=== PATIENT | female | born 1950 | race Caucasian/White ===

== ENCOUNTER 2017-09-15 18:37 | Inpatient (IN) | payer MEDICARE, OTHER ==
[~2017-09-15] VITALS: Ht 165.1 cm; Wt 58.1 kg
[2017-09-15] MEDS ORDERED: DIVA250T6 PO (19:03)
[2017-09-15] MEDS ORDERED: TEMA30CA5 PO (19:03)
[2017-09-15] MEDS ORDERED: RISP2TAB23 PO (19:03)
[2017-09-15 19:09] LABS: BASOPHILS # (AUTO) 0.1 /CMM (0.0-0.2); BASOPHILS % (AUTO) 0.7 % (0.0-2.0); EOSINOPHILS % (AUTO) 0.4 % (0.0-6.0); HEMATOCRIT 34 % (33-45); HEMOGLOBIN 11.6 g/dL (11.5-14.8); LYMPHOCYTES # (AUTO) 1.8 /CMM (0.8-4.8); LYMPHOCYTES % (AUTO) 24.6 % (20.0-44.0); MEAN CORPUSCULAR HEMOGLOBIN 32 PG (26.0-33.0); MEAN CORPUSCULAR HGB CONC 34 g/dl (31.0-36.0); MEAN CORPUSCULAR VOLUME 96 fL (82-100); MONOCYTES % (AUTO) 13.3 % (2.0-12.0); NEUTROPHILS # (AUTO) 4.3 /CMM (1.8-8.9); PLATELET COUNT (AUTO) 208 /CMM (150-450); RDW COEFFICIENT OF VARIATION 14.1 (11.5-15.0); RED BLOOD CELL COUNT(AUTO) 3.59 MIL/uL (4.0-5.2); WHITE BLOOD COUNT (AUTO) 7.2 K/uL (4.3-11.0)
[2017-09-15 19:19] LABS: CARBON DIOXIDE 24 mmol/L (21-32); CHLORIDE 104 mmol/L (98-107); CREATININE 0.8 mg/dL (0.6-1.3); GLUCOSE 112 mg/dL (74-106); POTASSIUM 3.6 mmol/L (3.5-5.1); SODIUM SERUM 137 mmol/L (136-145); UREA NITROGEN, BLOOD 4 mg/dL (7-18)
[2017-09-15 19:34] LABS: ACETAMINOPHEN < 2 ug/ml (10-30); ALANINE AMINOTRANSFERASE 23 U/L (12-78); ALBUMIN 3.6 g/dL (3.4-5.0); ALCOHOL, BLOOD < 3 mg/dL (0-0); ALKALINE PHOSPHATASE 81 U/L (46-116); ASPARTATE AMINOTRANSFERASE 27 U/L (15-37); BILIRUBIN,DIRECT 0.1 mg/dL (0.0-0.2); BILIRUBIN,TOTAL 0.3 mg/dL (0.2-1.0); SALICYLATE 3.8 mg/dL (2.8-20.0)
[2017-09-15 21:21] VITALS: BP 162/70
[2017-09-15] MEDS ORDERED: ACETAMINOPHEN 325 MG TABLET PO PRN (21:30)
[2017-09-15] MEDS ORDERED: MAG HYDROX/AL HYDROX/SIMETH 30 ML UDC PO PRN (21:30)
[2017-09-15] MEDS ORDERED: LORAZEPAM 0.5 MG TABLET PO PRN (21:30)
[2017-09-15] MEDS ORDERED: MAGNESIUM HYDROXIDE 30 ML UDC PO PRN (21:30)
[2017-09-16] MEDS ORDERED: LORAZEPAM 0.5 MG TABLET ONE (05:52)
[2017-09-16 09:57] LABS: APPEARANCE,URINE CLEAR (CLEAR); BILIRUBIN,URINE NEGATIVE (NEGATIVE); BLOOD, URINE NEGATIVE Ery/uL (NEGATIVE); COLOR,URINE YELLOW (YELLOW); KETONES,URINE TRACE (NEGATIVE); LEUKOCYTE ESTERASE ,URINE NEGATIVE (NEGATIVE); NITRITE, URINE NEGATIVE (NEGATIVE); PROTEIN,URINE NEGATIVE (NEGATIVE); UGLUCOSE NEGATIVE (NEGATIVE); UROBILINOGEN,URINE 0.2 EU/dL (0.2)
[2017-09-16 09:59] LABS: BACTERIA,URINE 1+ /HPF (None Seen); RBC,URINE 0-2 /HPF (0-2); WBC,URINE 0-2 /HPF (0-3)
[2017-09-16] MEDS: DIVALPROEX SODIUM 250 MG TABLET.DR PO SCH ×2 (13:30→21:00)
[2017-09-16 16:00] VITALS: BP 129/72
[2017-09-16 20:00] VITALS: BP 142/52
[2017-09-16] MEDS ORDERED: risperiDONE 1 MG TABLET PO SCH (20:00)
[2017-09-17 08:00] VITALS: BP 146/66
[2017-09-17] MEDS: DIVALPROEX SODIUM 250 MG TABLET.DR PO SCH ×2 (08:28→21:31)
[2017-09-17 15:57] VITALS: BP 121/60
[2017-09-17 20:00] VITALS: BP 104/68
[2017-09-17] MEDS: risperiDONE 1 MG TABLET PO SCH (21:31)
[2017-09-18 08:00] VITALS: BP 126/69
[2017-09-18] MEDS: DIVALPROEX SODIUM 250 MG TABLET.DR PO SCH ×2 (09:10→21:10)
[2017-09-18 16:00] VITALS: BP 117/57
[2017-09-18 20:00] VITALS: BP 105/76
[2017-09-18] MEDS: risperiDONE 1 MG TABLET PO SCH (21:10)
[2017-09-19 08:00] VITALS: BP 127/63
[2017-09-19] MEDS: DIVALPROEX SODIUM 250 MG TABLET.DR PO SCH ×2 (08:52→20:55)
[2017-09-19 16:11] VITALS: BP 123/50
[2017-09-19 20:00] VITALS: BP 133/48
[2017-09-19] MEDS: risperiDONE 1 MG TABLET PO SCH (20:54)
[2017-09-20 08:00] VITALS: BP 118/70
[2017-09-20] MEDS: DIVALPROEX SODIUM 250 MG TABLET.DR PO SCH ×2 (08:29→20:36)
[2017-09-20 15:22] VITALS: BP 134/55
[2017-09-20 20:12] VITALS: BP 137/61
[2017-09-20] MEDS: risperiDONE 1 MG TABLET PO SCH (20:36)
[2017-09-21 08:00] VITALS: BP 144/61
[2017-09-21] MEDS: DIVALPROEX SODIUM 250 MG TABLET.DR PO SCH ×2 (08:16→20:00)
[2017-09-21 16:42] VITALS: BP 128/56
[2017-09-21] MEDS: risperiDONE 1 MG TABLET PO SCH (20:00)
[2017-09-21 20:37] VITALS: BP 104/65
[2017-09-22 08:00] VITALS: BP 122/54
[2017-09-22] MEDS: DIVALPROEX SODIUM 250 MG TABLET.DR PO SCH ×2 (08:37→20:55)
[2017-09-22] MEDS: risperiDONE 1 MG TABLET PO SCH ×2 (13:00→20:56)
[2017-09-22 16:06] VITALS: BP 123/84
[2017-09-22 20:49] VITALS: BP 135/51
[2017-09-23 08:00] VITALS: BP 125/57
[2017-09-23] MEDS: risperiDONE 1 MG TABLET PO SCH ×3 (10:32→21:03)
[2017-09-23] MEDS: DIVALPROEX SODIUM 250 MG TABLET.DR PO SCH ×2 (10:32→21:03)
[2017-09-23 16:41] VITALS: BP 147/95
[2017-09-23 20:07] VITALS: BP 123/52
[2017-09-24 08:00] VITALS: BP 129/54
[2017-09-24] MEDS: risperiDONE 1 MG TABLET PO SCH ×3 (10:31→20:48)
[2017-09-24] MEDS: DIVALPROEX SODIUM 250 MG TABLET.DR PO SCH ×3 (10:31→17:00)
[2017-09-24 16:00] VITALS: BP 133/60
[2017-09-24 20:00] VITALS: BP 130/57
[2017-09-25] MEDS: TEMAZEPAM 7.5 MG CAPSULE PO PRN ×2 (01:36→21:25)
[2017-09-25 08:00] VITALS: BP 110/69
[2017-09-25] MEDS: risperiDONE 1 MG TABLET PO SCH ×3 (08:11→21:24)
[2017-09-25] MEDS: DIVALPROEX SODIUM 250 MG TABLET.DR PO SCH ×3 (08:11→16:15)
[2017-09-25 16:04] VITALS: BP_SYST 117; BP_SYST 124; BP_DIAS 50; BP_DIAS 69
[2017-09-25] MEDS ORDERED: DIVALPROEX SODIUM 250 MG TABLET.DR PO SCH (17:00)
[2017-09-25 20:00] VITALS: BP 122/51
[2017-09-26 08:00] VITALS: BP 131/53
[2017-09-26] MEDS: risperiDONE 1 MG TABLET PO SCH ×3 (08:33→20:31)
[2017-09-26] MEDS: DIVALPROEX SODIUM 250 MG TABLET.DR PO SCH ×2 (08:33→17:08)
[2017-09-26 16:00] VITALS: BP 128/58
[2017-09-26 20:00] VITALS: BP 122/51
[2017-09-27 08:30] VITALS: BP 126/73
[2017-09-27] MEDS: DIVALPROEX SODIUM 250 MG TABLET.DR PO SCH ×2 (08:41→16:32)
[2017-09-27] MEDS: risperiDONE 1 MG TABLET PO SCH ×3 (08:42→20:58)
[2017-09-27 15:37] VITALS: BP 114/77
[2017-09-27 20:50] VITALS: BP 146/52
[2017-09-28 08:00] VITALS: BP 115/76
[2017-09-28] MEDS: risperiDONE 1 MG TABLET PO SCH ×3 (08:26→20:55)
[2017-09-28] MEDS: DIVALPROEX SODIUM 250 MG TABLET.DR PO SCH ×2 (08:26→16:24)
[2017-09-28 16:30] VITALS: BP 100/63
[2017-09-28 20:22] VITALS: BP 142/54
[2017-09-29 08:00] VITALS: BP 123/64
[2017-09-29] MEDS: DIVALPROEX SODIUM 250 MG TABLET.DR PO SCH (08:29)
[2017-09-29] MEDS: risperiDONE 1 MG TABLET PO SCH (08:29)
== END 2017-09-29 13:25 | disposition home or self-care (01) | DRG 885 ==
LOC: ER 18:42 → GPS 20:08
PROVIDERS: ADMIT Psychiatry & Neurology Psychosomatic Medicine; ATTEND Nurse Practitioner Acute Care
DX: F25.0 Schizoaffective disorder, bipolar type (principal); E11.9 Type 2 diabetes mellitus without complications; F41.9 Anxiety disorder, unspecified; Z73.6 Limitation of activities due to disability; Z79.899 Other long term (current) drug therapy
CPT/HCPCS: 36415; 80048-TC; 80076-TC; 80164-TC; 81000-TC; 85025-TC; 87081-TC; G0480

== ENCOUNTER 2018-06-22 14:18 | Inpatient (IN) | payer MEDICARE, OTHER ==
[~2018-06-22] VITALS: Ht 157.5 cm; Wt 59.9 kg
--- NOTE | 2018-06-22 15:08 | NUR ---
BIB PRIVATE EM FROM HOME FOR MEDICAL CLEARANCE PRIOR TO ADMISSION TO [facility]. PT SEEN & EVAL'D BY DR. MORTENSEN. PT AAOX2, CALM & COOPERATIVE, NAD NOTED @ THIS TIME.
[2018-06-22] MEDS ORDERED: risperiDONE 0.25 MG TABLET PO ONE (17:00)
[2018-06-22] MEDS ORDERED: risperiDONE 1 MG TABLET ONE (17:08)
[2018-06-22 17:09] LABS: BASOPHILS % (AUTO) 0.4 % (0.0-2.0); EOSINOPHILS % (AUTO) 0.3 % (0.0-6.0); HEMATOCRIT 41 % (33-45); HEMOGLOBIN 13.6 g/dL (11.5-14.8); LYMPHOCYTES # (AUTO) 2.2 /CMM (0.8-4.8); LYMPHOCYTES % (AUTO) 27.8 % (20.0-44.0); MEAN CORPUSCULAR HEMOGLOBIN 33 PG (26.0-33.0); MEAN CORPUSCULAR HGB CONC 33 g/dl (31.0-36.0); MEAN CORPUSCULAR VOLUME 99 fL (82-100); MONOCYTES # (AUTO) 0.8 /CMM (0.1-1.30); MONOCYTES % (AUTO) 9.6 % (2.0-12.0); NEUTROPHILS # (AUTO) 4.9 /CMM (1.8-8.9); NEUTROPHILS % (AUTO) 61.9 % (43.0-81.0); PLATELET COUNT (AUTO) 199 /CMM (150-450); RDW COEFFICIENT OF VARIATION 13.8 (11.5-15.0); RED BLOOD CELL COUNT(AUTO) 4.19 MIL/uL (4.0-5.2); WHITE BLOOD COUNT (AUTO) 7.9 K/uL (4.3-11.0)
[2018-06-22 17:22] LABS: CALCIUM, SERUM 9.5 mg/dL (8.5-10.1); CARBON DIOXIDE 23 mmol/L (21-32); CHLORIDE 108 mmol/L (98-107); GLUCOSE 86 mg/dL (74-106); POTASSIUM 4.8 mmol/L (3.5-5.1); SODIUM SERUM 143 mmol/L (136-145); UREA NITROGEN, BLOOD 8 mg/dL (7-18)
[2018-06-22 17:29] LABS: ALANINE AMINOTRANSFERASE 31 U/L (12-78); ALBUMIN 3.9 g/dL (3.4-5.0); ALCOHOL, BLOOD < 3 mg/dL (0-0); ALKALINE PHOSPHATASE 96 U/L (46-116); ASPARTATE AMINOTRANSFERASE 30 U/L (15-37); BILIRUBIN,DIRECT 0.1 mg/dL (0.0-0.2); BILIRUBIN,TOTAL 0.6 mg/dL (0.2-1.0); TOTAL PROTEIN, SERUM 7.6 g/dL (6.4-8.2)
[2018-06-22] MEDS ORDERED: RISP0.5T20 PO (17:29)
[2018-06-22] MEDS ORDERED: OLAN5TAB3 PO (17:29)
[2018-06-22] MEDS ORDERED: CALC-261 PO (17:29)
[2018-06-22] MEDS ORDERED: TEMA15CA PO (17:29)
[2018-06-22] MEDS ORDERED: MAGN200T5 PO (17:29)
[2018-06-22] MEDS ORDERED: HYDR12.55 PO (17:30)
[2018-06-22] MEDS ORDERED: FERR325T23 PO (17:30)
[2018-06-22 17:32] LABS: APPEARANCE,URINE Clear (CLEAR); BILIRUBIN,URINE Negative (NEGATIVE); BLOOD, URINE Negative Ery/uL (NEGATIVE); COLOR,URINE Yellow (YELLOW); KETONES,URINE 15 (NEGATIVE); LEUKOCYTE ESTERASE ,URINE Negative (NEGATIVE); NITRITE, URINE Negative (NEGATIVE); PH,URINE 6.5 (5.0-8.0); PROTEIN,URINE Negative (NEGATIVE); UGLUCOSE Negative (NEGATIVE); UROBILINOGEN,URINE 0.2 EU/dL (0.2)
[2018-06-22 17:35] LABS: THYROID STIMULATING HORMONE 1.354 uIU/mL (0.358-3.74)
[2018-06-22 17:42] LABS: ACETAMINOPHEN 0 ug/ml (10-30); SALICYLATE 2.3 mg/dL (2.8-20.0)
[2018-06-22 17:46] LABS: BACTERIA,URINE Rare /HPF (None Seen); RBC,URINE NONE SEEN /HPF (0-2); SQUAMOUS EPITHELIAL CELL,UR Few /HPF (None Seen); WBC,URINE NONE SEEN /HPF (0-3)
[2018-06-22 17:56] LABS: VALPROIC ACID < 3 ug/mL (50-100)
[2018-06-22] MEDS ORDERED: OLANZAPINE 5 MG TABLET PO SCH (18:30)
--- NOTE | 2018-06-22 19:15 | NUR ---
ADMITTED 68 Y/O FEMALE FROM HOME AND EVALUATED AT [facility] ER. ON 5150 HOLD, BASED ON HOLD, PATIENT REFUSED TO SPEAK, WAS USING SIGN LANGUAGE AND NON VERBAL BEHAVIORS THAT WERE UNINTERPRETABLE. PATIENT REFUSED TO DISCLOSE WHETHER SHE WAS EATING AND STATED THAT SHE WAS NOT TAKEN HER MEDICATION. UNABLE TO FORMULATE A PLAN FOR SELF CARE AND WERE WRITING CHECKS TO GIVE AWAY MONEY TO HER NEIGHBORS. PATIENT ADMITTING DX. PSYCHOSIS AND MEDICAL DX. OF HYPERTENSION. UPON FACE TO FACE EVALUATION, PATIENT APPEARED ALERT, ORIENTED X 1-2, CONFUSED, DISORGANIZED, LOUD, TALKING TO SELF, MUMBLING, TALKING NON SENSIBLE WORDS, REDIRECTIBLE, NO SOB, NO ACUTE DISTRESS, BREATHING EVEN AND UNLABORED, DENIES PAIN AND DISCOMFORT. HEAD TO TOE ASSESSMENT DONE, SKIN INTACT, PICTURES TAKEN, PATIENT UNABLE TO SIGN PAPER WORKS. ALL CONTRABANDS AND BELONGINGS INSPECTED BY THE PREVIOUS SHIFT. NOTIFIED DR. SAWANT OF THE ADMISSION. KEPT CLEAN, DRY AND COMFORTABLE, WILL CONTINUE TO MONITOR [id number] FOR SAFETY.
[2018-06-22 20:21] VITALS: BP 129/53
[2018-06-22] MEDS ORDERED: MAG HYDROX/AL HYDROX/SIMETH 30 ML UDC PO PRN (20:30)
[2018-06-22] MEDS ORDERED: MAGNESIUM HYDROXIDE 30 ML UDC PO PRN (20:30)
[2018-06-22] MEDS: FERROUS SULFATE (325 MG) 325 MG/TAB TABLET PO SCH (20:47)
[2018-06-22 23:15] VITALS: BP 129/53
[2018-06-22] MEDS: TEMAZEPAM 7.5 MG CAPSULE PO PRN (23:36)
[2018-06-23 08:00] VITALS: BP 123/68
--- NOTE | 2018-06-23 09:00 | NUR ---
OUT AT DESK ,TALKING INCESSANTLY,ALL DAY LONG.
[2018-06-23] MEDS: CALCIUM CARB 600MG /VIT D 1 EACH TABLET PO SCH (09:27)
[2018-06-23] MEDS: MAGNESIUM OXIDE 400 MG TABLET PO SCH (09:27)
[2018-06-23] MEDS: FERROUS SULFATE (325 MG) 325 MG/TAB TABLET PO SCH ×2 (09:27→17:12)
[2018-06-23] MEDS: HYDROCHLOROTHIAZIDE 25 MG TABLET PO SCH (09:28)
--- NOTE | 2018-06-23 11:12 | NUR ---
TIM attempted to contact pts son Zonia [phone] for collateral information and to discuss discharge plan but was unable to leave voicemail due to his mailbox being full. TIM will attempt to callback at a later time.
--- NOTE | 2018-06-23 11:13 | NUR ---
SW attempted to contact next of kin on face sheet pts relative Laura [phone], however phone number was no longer in service.
[2018-06-23] MEDS: LORAZEPAM 0.5 MG TABLET PO PRN ×2 (11:33→17:12)
--- NOTE | 2018-06-23 11:42 | NUR ---
MEDICATED FOR ANXIETY WITH ATIVAN PO.
--- NOTE | 2018-06-23 12:27 | NUR ---
SW contacted pts son Zonia [phone] for collateral information and to discuss discharge plan. Pts son stated pt could return home when she is stable and mentioned pt has two caregivers Laura [phone] and Yamilka [phone] who help care for her and could help answer any additional questions SW had and receive collateral information from.
--- NOTE | 2018-06-23 15:49 | NUR ---
INITIAL DISCHARGE PLAN: Patient wishes to return home and SW confirmed with patients son Zonia [phone] who stated pt is able to return home to [address] [place] [address] [address] [place] [id number]. SW will help form a safe and proper discharge plan in collaboration with MD and pts son.
[2018-06-23 16:00] VITALS: BP 144/59
--- NOTE | 2018-06-23 17:17 | NUR ---
GIVEN ATIVAN 0.5 MG PO X2.
[2018-06-23] MEDS ORDERED: Medication Not On Formulary EA (Risperidone 0.5 MG) PO SCH (18:00)
--- NOTE | 2018-06-23 19:30 | NUR ---
GPS RN NOTE, RECEIVED PATIENT AWAKE AND IN BED, NO S/S OR COMPLAINTS OF PAIN AT THIS TIME. PATIENT IS DISPLAYING NO S/S OF APPARENT DISTRESS AT THIS TIME. PATIENT BREATHING IS UNLABORED WITH EQUAL RISE AND FALL CHEST. PATIENT IS ALERT AND ORIENTED X 1 ON ROOM AIR WITH A SPO2 95% . PATIENT IS CONFUSED, INTRUSIVE, DISORGANIZED, COOPERATIVE, ANXIOUS AT TIMES, AND NEEDS REDIRECTION. PATIENT DENIES SUICIDE IDEATIONS AND HOMICIDAL IDEATIONS AT THIS TIME. PATIENT EDUCATED ON THE USE OF THE CALL GORDON. PATIENT BED SIDE RAILS UP X 2 FOR SAFETY, BED IS LOCKED, LOW, AND I WILL CONTINUE TO MONITOR AND MAINTAIN SAFETY WITH THE HELP OF STAFF.
[2018-06-23] MEDS: OLANZAPINE 5 MG TABLET PO SCH (21:45)
[2018-06-23] MEDS: DIVALPROEX SODIUM 500 MG TABLET.DR PO SCH (21:45)
[2018-06-24 08:00] VITALS: BP 138/90
[2018-06-24] MEDS: CALCIUM CARB 600MG /VIT D 1 EACH TABLET PO SCH (08:41)
[2018-06-24] MEDS: OLANZAPINE 5 MG TABLET PO SCH ×2 (08:41→20:27)
[2018-06-24] MEDS: DIVALPROEX SODIUM 500 MG TABLET.DR PO SCH ×2 (08:41→20:28)
[2018-06-24] MEDS: MAGNESIUM OXIDE 400 MG TABLET PO SCH (08:41)
[2018-06-24] MEDS: FERROUS SULFATE (325 MG) 325 MG/TAB TABLET PO SCH ×2 (08:41→17:00)
[2018-06-24] MEDS: HYDROCHLOROTHIAZIDE 25 MG TABLET PO SCH (08:41)
[2018-06-24] MEDS: LORAZEPAM 0.5 MG TABLET PO PRN (09:11)
--- NOTE | 2018-06-24 09:18 | NUR ---
GPS/RN-NOTES PATIENT IN THE DAY ROOM NOTED WITH HYPERVERBAL INTRUSIVE EASILY ANGRY BEHAVIOR. REDIRECTED AND OFFERED ATIVAN . ATIVAN 0.5MG P.O GIVEN PRN ORDER. WILL CONT. MONITORINGQ 15 MINS. FOR SAFETY AND BEHAVIOR.
--- NOTE | 2018-06-24 10:20 | NUR ---
GPS/RN-NOTES PATIENT IN THE DAY ROOM SITTING IN THE CHAIR ,CALM NO ACUTE DISTRESS NOTED.
--- NOTE | 2018-06-24 15:37 | NUR ---
TIM received a phone call from Alejandrina Hughes pts therapist from [facility] with [facility] [phone] stating pt has been receiving mental health services since 2014 and meets with pt weekly every at 1:00pm. Alejandrina requested that she be contacted by TIM when pt discharges from hospital to continue providing pt with services.
[2018-06-24 16:00] VITALS: BP 139/65
--- NOTE | 2018-06-24 17:15 | NUR ---
GPS/RN-NOTES PATIENT REFUSE FERROUS SULFATE STATED" I DON'T WANT TO TAKE THAT BLACK PILL AGAIN".EXPLAINED RISK AND BENEFITS BUT PATIENT STILL REFUSED.OFFERED X3.
[2018-06-24 20:00] VITALS: BP 106/51
[2018-06-25 08:00] VITALS: BP 124/69
[2018-06-25] MEDS: CALCIUM CARB 600MG /VIT D 1 EACH TABLET PO SCH (09:00)
[2018-06-25] MEDS: FERROUS SULFATE (325 MG) 325 MG/TAB TABLET PO SCH ×2 (09:00→16:23)
[2018-06-25] MEDS: DIVALPROEX SODIUM 500 MG TABLET.DR PO SCH ×2 (09:06→21:06)
[2018-06-25] MEDS: MAGNESIUM OXIDE 400 MG TABLET PO SCH (09:06)
[2018-06-25] MEDS: OLANZAPINE 5 MG TABLET PO SCH ×2 (09:07→21:06)
[2018-06-25] MEDS: HYDROCHLOROTHIAZIDE 25 MG TABLET PO SCH (09:07)
--- NOTE | 2018-06-25 14:30 | NUR ---
GPS/RN-NOTES DR. SAWANT MADE AWARE OF PATIENT BEING SELECTIVE WITH MEDICATIONS TODAY.
[2018-06-25 16:11] VITALS: BP 139/79
[2018-06-25] MEDS: LORAZEPAM 0.5 MG TABLET PO PRN (16:23)
--- NOTE | 2018-06-25 16:25 | NUR ---
GPS/RN-NOTES PATIENT NOTED PATIENT WITH HYPERVERBAL INTRUSIVE TALKING VERY LOUD IN THE DAY ROOM. REDIRECTED AND OFFERED ATIVAN . ATIVAN 0.5MG P.O GIVEN PRN ORDER. WILL CONT. MONITORING FOR SAFETY AND BEHAVIOR.
[2018-06-25] MEDS: TEMAZEPAM 7.5 MG CAPSULE PO PRN (21:06)
--- NOTE | 2018-06-25 21:06 | NUR ---
GPS RN NOTES. PT. COMPLAINING OF BEING UNABLE TO FALL ASLEEP. RESTORIL GIVEN ORDERED WILL CONTINUE TO MONITOR FOR SAFETY.
[2018-06-26 08:16] VITALS: BP 111/75
[2018-06-26] MEDS: DIVALPROEX SODIUM 500 MG TABLET.DR PO SCH ×2 (08:59→20:37)
[2018-06-26] MEDS: MAGNESIUM OXIDE 400 MG TABLET PO SCH (08:59)
[2018-06-26] MEDS: OLANZAPINE 5 MG TABLET PO SCH ×2 (08:59→21:02)
[2018-06-26] MEDS: HYDROCHLOROTHIAZIDE 25 MG TABLET PO SCH (09:00)
[2018-06-26] MEDS: FERROUS SULFATE (325 MG) 325 MG/TAB TABLET PO SCH ×2 (09:08→17:00)
[2018-06-26] MEDS: CALCIUM CARB 600MG /VIT D 1 EACH TABLET PO SCH (09:08)
[2018-06-26] MEDS: LORAZEPAM 0.5 MG TABLET PO PRN ×2 (10:16→19:58)
--- NOTE | 2018-06-26 10:24 | NUR ---
GPS/RN-NOTES PATIENT IN THE NURSE STATION NOTED WITH HYPERVERBAL INTRUSIVE EASILY ANGRY BEHAVIOR. REDIRECTED AND OFFERED ATIVAN . ATIVAN 0.5MG P.O GIVEN PRN ORDER. WILL CONT. MONITORING FOR SAFETY AND BEHAVIOR.
--- NOTE | 2018-06-26 11:30 | NUR ---
GPS/RN-NOTES PATIENT IN THE DAY ROOM INTERACTING WITH STAFF CALM AT THIS TIME.NO ACUTE DISTRESS NOTED.
[2018-06-26 16:00] VITALS: BP 118/65
[2018-06-26 20:00] VITALS: BP 144/81
--- NOTE | 2018-06-26 20:00 | NUR ---
PATIENT BEHAVIOR ANXIOUS, C/O ANXIETY AND GIVEN ATIVAN PRN.
[2018-06-26] MEDS: OLANZAPINE 2.5 MG TABLET PO SCH (20:37)
--- NOTE | 2018-06-27 07:07 | NUR ---
REFUSED AM LABS. LAB MADE TWO ATTEMPTS.
[2018-06-27] MEDS: DIVALPROEX SODIUM 500 MG TABLET.DR PO SCH (09:11)
[2018-06-27] MEDS: CALCIUM CARB 600MG /VIT D 1 EACH TABLET PO SCH (09:11)
[2018-06-27] MEDS: MAGNESIUM OXIDE 400 MG TABLET PO SCH (09:11)
[2018-06-27] MEDS: FERROUS SULFATE (325 MG) 325 MG/TAB TABLET PO SCH ×2 (09:11→17:57)
[2018-06-27] MEDS: LORAZEPAM 0.5 MG TABLET PO PRN (09:12)
[2018-06-27] MEDS: HYDROCHLOROTHIAZIDE 25 MG TABLET PO SCH (09:12)
--- NOTE | 2018-06-27 09:12 | NUR ---
RN NOTES ADMINISTERED ATIVAN 0.5 MG PO PRN FOR ANXIETY, PARANOIA, YELLING. V/S TAKEN BP -117/75, P-97, CONTINUED MONITORING.
[2018-06-27 09:17] VITALS: BP 117/75
[2018-06-27] MEDS: OLANZAPINE 5 MG TABLET PO SCH ×2 (09:35→21:00)
[2018-06-27 16:00] VITALS: BP 123/61
--- NOTE | 2018-06-27 20:15 | NUR ---
GPS RN NOTE: RECEIVED PATIENT IN HALLWAY AT NURSE STATION DISORGANIZED ORIENTED X 1, PT IS INTRUSIVE BUT REDIRECTABLE WITH FREQUENT ENCOURAGEMENT. DENIES SI, HI. NO C/O PAIN OR DISCOMFORT AT THIS TIME. WILL CONTINUE TO MONITOR Q15MIN ROUNDS FOR SAFETY AND BEHAVIOR.
[2018-06-27] MEDS: OLANZAPINE 2.5 MG TABLET PO SCH (21:00)
[2018-06-27] MEDS: DIVALPROEX SODIUM 125 MG CAP.SPRINK PO SCH (21:00)
[2018-06-27 21:15] VITALS: BP 112/56
--- NOTE | 2018-06-27 21:15 | NUR ---
REFUSED ALL MEDICATIONS AT BEDTIME DESPITE EDUCATION ABOUT RISKS AND BENEFITS, ENCOURAGEMENT, REALITY ORIENTATION.
[2018-06-28 07:06] LABS: BASOPHILS % (AUTO) 0.3 % (0.0-2.0); EOSINOPHILS % (AUTO) 3.3 % (0.0-6.0); HEMATOCRIT 38 % (33-45); HEMOGLOBIN 12.9 g/dL (11.5-14.8); LYMPHOCYTES % (AUTO) 55.4 % (20.0-44.0); MEAN CORPUSCULAR HEMOGLOBIN 33 PG (26.0-33.0); MEAN CORPUSCULAR HGB CONC 34 g/dl (31.0-36.0); MEAN CORPUSCULAR VOLUME 98 fL (82-100); MONOCYTES % (AUTO) 11.4 % (2.0-12.0); NEUTROPHILS % (AUTO) 29.6 % (43.0-81.0); PLATELET COUNT (AUTO) 171 /CMM (150-450); RDW COEFFICIENT OF VARIATION 13.3 (11.5-15.0); WHITE BLOOD COUNT (AUTO) 5.2 K/uL (4.3-11.0)
[2018-06-28 07:07] LABS: LYMPHOCYTES # (AUTO) 2.9 /CMM (0.8-4.8); MONOCYTES # (AUTO) 0.6 /CMM (0.1-1.30); NEUTROPHILS # (AUTO) 1.5 /CMM (1.8-8.9)
[2018-06-28 07:24] LABS: ALBUMIN 3.2 g/dL (3.4-5.0); BILIRUBIN,TOTAL 0.3 mg/dL (0.2-1.0); CALCIUM, SERUM 8.7 mg/dL (8.5-10.1); CREATININE 0.7 mg/dL (0.6-1.3); POTASSIUM 3.1 mmol/L (3.5-5.1); TOTAL PROTEIN, SERUM 6.5 g/dL (6.4-8.2)
--- NOTE | 2018-06-28 07:25 | NUR ---
gps rn initial notes Received patient in the [address] walking fine, on room air and tolerated well. No facial grimace noted. Will continue to monitor.
[2018-06-28] MEDS: CALCIUM CARB 600MG /VIT D 1 EACH TABLET PO SCH ×2 (08:27→09:00)
[2018-06-28] MEDS: MAGNESIUM OXIDE 400 MG TABLET PO SCH ×2 (08:27→09:00)
[2018-06-28] MEDS: FERROUS SULFATE (325 MG) 325 MG/TAB TABLET PO SCH ×3 (08:27→16:37)
[2018-06-28] MEDS: OLANZAPINE 5 MG TABLET PO SCH ×3 (08:28→21:10)
[2018-06-28] MEDS: HYDROCHLOROTHIAZIDE 25 MG TABLET PO SCH ×2 (08:28→09:00)
[2018-06-28] MEDS: DIVALPROEX SODIUM 125 MG CAP.SPRINK PO SCH ×3 (08:28→21:10)
[2018-06-28 09:00] VITALS: BP 110/72
--- NOTE | 2018-06-28 09:00 | NUR ---
GPS NOTES Patient refused all her morning medications, encouraged to take her meds but still refused. Will inform MD. Will continue to monitor.
[2018-06-28] MEDS ORDERED: POTASSIUM CHLORIDE 20 MEQ TAB.PRT.SR PO ONE ×2 (10:00→11:00)
[2018-06-28 16:00] VITALS: BP 111/41
--- NOTE | 2018-06-28 19:22 | NUR ---
RN Notes Patient in the activity room, watching TV, interacting with other patient, talking in farsi continously. No signs and symptoms of distress and discomfort. Alert and oriented x1, confused and disoriented, reorientation given. Will continue to monitor and maintaihn safety.
[2018-06-28 19:57] VITALS: BP 136/55
[2018-06-28] MEDS: OLANZAPINE 2.5 MG TABLET PO SCH (21:10)
[2018-06-28] MEDS: TEMAZEPAM 7.5 MG CAPSULE PO PRN (22:58)
[2018-06-29] MEDS: LORAZEPAM 0.5 MG TABLET PO PRN ×3 (05:13→21:57)
--- NOTE | 2018-06-29 05:13 | NUR ---
RN Notes Pt is restless and agitated, ativan o.5 mg tab given po and tolerated well. Will continue to monitor pt.
[2018-06-29 08:00] VITALS: BP 144/54
[2018-06-29] MEDS: CALCIUM CARB 600MG /VIT D 1 EACH TABLET PO SCH (08:32)
[2018-06-29] MEDS: FERROUS SULFATE (325 MG) 325 MG/TAB TABLET PO SCH ×2 (08:32→16:43)
[2018-06-29] MEDS: DIVALPROEX SODIUM 125 MG CAP.SPRINK PO SCH ×2 (08:32→21:57)
[2018-06-29] MEDS: OLANZAPINE 5 MG TABLET PO SCH ×2 (08:32→21:57)
[2018-06-29] MEDS: HYDROCHLOROTHIAZIDE 25 MG TABLET PO SCH (08:32)
[2018-06-29] MEDS: MAGNESIUM OXIDE 400 MG TABLET PO SCH (08:33)
[2018-06-29 16:49] VITALS: BP 123/58
--- NOTE | 2018-06-29 19:15 | NUR ---
RN NOTES RECEIVED PT WALKING AROUND UNIT. NO APPARENT S/S OF DISTRESS AT THIS TIME. WILL CONTINUE TO MONITOR FOR PATIENT SAFETY.
[2018-06-29 20:22] VITALS: BP 128/55
[2018-06-29] MEDS: TEMAZEPAM 7.5 MG CAPSULE PO PRN (21:57)
[2018-06-29] MEDS: OLANZAPINE 2.5 MG TABLET PO SCH (21:57)
[2018-06-29 22:44] LABS: CALCIUM, SERUM 9.7 mg/dL (8.5-10.1); CREATININE 0.7 mg/dL (0.6-1.3); POTASSIUM 3.6 mmol/L (3.5-5.1)
[2018-06-30 08:00] VITALS: BP 118/58
[2018-06-30] MEDS: DIVALPROEX SODIUM 125 MG CAP.SPRINK PO SCH ×3 (08:55→21:19)
[2018-06-30] MEDS: OLANZAPINE 5 MG TABLET PO SCH (08:55)
[2018-06-30] MEDS: CALCIUM CARB 600MG /VIT D 1 EACH TABLET PO SCH (09:00)
[2018-06-30] MEDS: MAGNESIUM OXIDE 400 MG TABLET PO SCH (09:00)
[2018-06-30] MEDS: FERROUS SULFATE (325 MG) 325 MG/TAB TABLET PO SCH ×2 (09:00→17:22)
[2018-06-30] MEDS: HYDROCHLOROTHIAZIDE 25 MG TABLET PO SCH (09:00)
[2018-06-30] MEDS ORDERED: HALOPERIDOL LACTATE INJ 5 MG/ML VIAL IM PRN (15:30)
[2018-06-30 16:00] VITALS: BP 112/54
--- NOTE | 2018-06-30 19:05 | NUR ---
GPS RN OPENING NOTE: RECEIVED PT ON ROOM AIR AND IS TOLERATING WELL. 2 FAMILY MEMBERS AT BEDSIDE. PT IS A/OX1, CONFUSED AND DISORGANIZED. NO S/S OF DISTRESS NOTED. NO SOB NOTED. PT DENIES SUICIDE IDEATIONS OR HOMICIDAL IDEATIONS AT THIS TIME. PT HAS NO NEEDS AT THIS TIME. PT EDUCATED ON USE OF CALL BED. BED KEPT IN LOW, LOCKED POSITION, AND SIDE RAILS X 2UP. WILL CONTINUE TO MONITOR PT.
[2018-06-30 20:00] VITALS: BP 104/49
[2018-06-30 20:09] VITALS: BP 128/55
[2018-06-30] MEDS: BENZTROPINE MESYLATE (1 MG) 1 MG TABLET PO SCH (21:18)
--- NOTE | 2018-06-30 21:19 | NUR ---
GPS RN NOTE: PT GIVEN CONGENTIN AND DEPAKOTE. PT ONLY TOOK PARTIAL OF THE MEDICATIONS AND DID NOT WANT THE REST. WILL ATTEMPT TO GIVE REST LATER.
[2018-06-30] MEDS: TEMAZEPAM 7.5 MG CAPSULE PO PRN (22:24)
--- NOTE | 2018-07-01 06:31 | NUR ---
GPS RN CLOSING NOTE: ALL NEEDS WERE ATTENDED AND ANTICIPATED FOR. PT REORIENTED NEEDED. PT RESTING IN BED COMFORTABLY. NO S/S OF DISTRESS. NO SOB NOTED. WILL ENDORSE TO AM NURSE FOR KIMBER.
--- NOTE | 2018-07-01 08:00 | NUR ---
GPS RN AM NOTE: RECEIVED PT ON ROOM AIR AND IS TOLERATING WELL. 2 FAMILY MEMBERS AT BEDSIDE. PT IS A/OX1, CONFUSED AND DISORGANIZED. NO S/S OF DISTRESS NOTED. NO SOB NOTED. PT DENIES SUICIDE IDEATIONS OR HOMICIDAL IDEATIONS AT THIS TIME. PT HAS NO NEEDS AT THIS TIME. PT EDUCATED ON USE OF CALL BED. BED KEPT IN LOW, LOCKED POSITION, AND SIDE RAILS X 2UP. WILL CONTINUE TO MONITOR PT.
[2018-07-01 08:24] VITALS: BP 119/58
[2018-07-01] MEDS: HALOPERIDOL 5 MG TABLET PO SCH ×2 (08:50→21:00)
[2018-07-01] MEDS: DIVALPROEX SODIUM 125 MG CAP.SPRINK PO SCH ×2 (08:51→21:49)
[2018-07-01] MEDS: FERROUS SULFATE (325 MG) 325 MG/TAB TABLET PO SCH ×2 (08:51→16:58)
[2018-07-01] MEDS: MAGNESIUM OXIDE 400 MG TABLET PO SCH (08:51)
[2018-07-01] MEDS: HYDROCHLOROTHIAZIDE 25 MG TABLET PO SCH (08:51)
[2018-07-01] MEDS: BENZTROPINE MESYLATE (1 MG) 1 MG TABLET PO SCH ×2 (08:51→21:49)
[2018-07-01] MEDS: CALCIUM CARB 600MG /VIT D 1 EACH TABLET PO SCH (08:51)
[2018-07-01 16:28] VITALS: BP 140/51
[2018-07-01 20:00] VITALS: BP 103/51
[2018-07-01] MEDS: TEMAZEPAM 7.5 MG CAPSULE PO PRN (21:49)
[2018-07-01] MEDS: ACETAMINOPHEN 325 MG TABLET PO PRN (23:25)
[2018-07-02 08:00] VITALS: BP 114/79
[2018-07-02] MEDS: HALOPERIDOL 5 MG TABLET PO SCH ×2 (10:18→21:23)
[2018-07-02] MEDS: MAGNESIUM OXIDE 400 MG TABLET PO SCH (10:19)
[2018-07-02] MEDS: CALCIUM CARB 600MG /VIT D 1 EACH TABLET PO SCH (10:19)
[2018-07-02] MEDS: DIVALPROEX SODIUM 125 MG CAP.SPRINK PO SCH ×2 (10:19→21:23)
[2018-07-02] MEDS: BENZTROPINE MESYLATE (1 MG) 1 MG TABLET PO SCH ×2 (10:19→21:23)
[2018-07-02] MEDS: FERROUS SULFATE (325 MG) 325 MG/TAB TABLET PO SCH ×2 (10:20→17:36)
[2018-07-02] MEDS: HYDROCHLOROTHIAZIDE 25 MG TABLET PO SCH (10:22)
[2018-07-02 16:15] VITALS: BP 120/59
[2018-07-02 20:00] VITALS: BP 122/54
[2018-07-03 08:00] VITALS: BP 114/54
[2018-07-03] MEDS: FERROUS SULFATE (325 MG) 325 MG/TAB TABLET PO SCH ×2 (10:40→17:46)
[2018-07-03] MEDS: BENZTROPINE MESYLATE (1 MG) 1 MG TABLET PO SCH ×2 (10:40→20:26)
[2018-07-03] MEDS: MAGNESIUM OXIDE 400 MG TABLET PO SCH (10:40)
[2018-07-03] MEDS: HYDROCHLOROTHIAZIDE 25 MG TABLET PO SCH (10:40)
[2018-07-03] MEDS: DIVALPROEX SODIUM 125 MG CAP.SPRINK PO SCH ×2 (10:40→20:26)
[2018-07-03] MEDS: CALCIUM CARB 600MG /VIT D 1 EACH TABLET PO SCH (10:40)
[2018-07-03] MEDS: HALOPERIDOL 5 MG TABLET PO SCH ×2 (10:40→20:26)
[2018-07-03 16:00] VITALS: BP 150/70
--- NOTE | 2018-07-03 19:50 | NUR ---
GPS/RN OPENING NOTES PATIENT IN BED. AWAKE, ALERT, AMBULATES WITH SUPERVISION, VERBALIZED NEEDS AT ALL TIMES, REQUIRE ASSISTANCE, RECEIVED REPORT FROM AM RN FOR KIMBER. BED IN LOCK POSITION.
[2018-07-03 20:00] VITALS: BP 128/55
--- NOTE | 2018-07-04 06:46 | NUR ---
GPS/RN NOTES PATIENT REFUSE BLOOD DRAW IN AM, WILL TRY AGAIN LATER.
[2018-07-04 08:00] VITALS: BP 111/53
[2018-07-04] MEDS: CALCIUM CARB 600MG /VIT D 1 EACH TABLET PO SCH (08:36)
[2018-07-04] MEDS: FERROUS SULFATE (325 MG) 325 MG/TAB TABLET PO SCH ×2 (08:36→16:13)
[2018-07-04] MEDS: MAGNESIUM OXIDE 400 MG TABLET PO SCH (08:36)
[2018-07-04] MEDS: HALOPERIDOL 5 MG TABLET PO SCH ×2 (08:37→20:58)
[2018-07-04] MEDS: DIVALPROEX SODIUM 125 MG CAP.SPRINK PO SCH ×2 (08:37→20:58)
[2018-07-04] MEDS: BENZTROPINE MESYLATE (1 MG) 1 MG TABLET PO SCH ×2 (08:37→20:58)
[2018-07-04] MEDS: HYDROCHLOROTHIAZIDE 25 MG TABLET PO SCH (08:43)
[2018-07-04 16:00] VITALS: BP 111/75
--- NOTE | 2018-07-04 19:40 | NUR ---
GPS RN INITIAL NOTE PT RECEIVED SLEEPING IN BED. NO ACUTE DISTRESS NOTED. WILL CONTINUE TO MONITOR.
[2018-07-04 20:03] VITALS: BP 102/42
[2018-07-04] MEDS: ACETAMINOPHEN 325 MG TABLET PO PRN (22:36)
[2018-07-05 08:00] VITALS: BP 135/85
[2018-07-05] MEDS: DIVALPROEX SODIUM 125 MG CAP.SPRINK PO SCH ×2 (08:22→21:34)
[2018-07-05] MEDS: BENZTROPINE MESYLATE (1 MG) 1 MG TABLET PO SCH ×2 (08:23→21:34)
[2018-07-05] MEDS: FERROUS SULFATE (325 MG) 325 MG/TAB TABLET PO SCH ×2 (08:23→16:20)
[2018-07-05] MEDS: HALOPERIDOL 5 MG TABLET PO SCH ×2 (08:23→21:34)
[2018-07-05] MEDS: CALCIUM CARB 600MG /VIT D 1 EACH TABLET PO SCH (08:24)
[2018-07-05] MEDS: HYDROCHLOROTHIAZIDE 25 MG TABLET PO SCH (08:25)
[2018-07-05] MEDS: MAGNESIUM OXIDE 400 MG TABLET PO SCH (08:25)
--- NOTE | 2018-07-05 14:57 | NUR ---
Per 's request TIM [facility] ([facility]) [id number] [place] [address]. [place] [address] P: [phone] for review.
[2018-07-05 16:00] VITALS: BP 147/55
[2018-07-05 20:56] VITALS: BP 117/51
[2018-07-05] MEDS: TEMAZEPAM 7.5 MG CAPSULE PO PRN (21:33)
--- NOTE | 2018-07-05 21:35 | NUR ---
GPS RN NOTE PT REQUESTING FOR SLEEPING MED. RESTORIL 7.5 MG PO GIVEN. CONTINUE TO MONITOR HER.
--- NOTE | 2018-07-05 22:35 | NUR ---
GPS RN NOTE PT FALL ASLEEP, NO DISTRESS NOTED.
[2018-07-06] MEDS: ACETAMINOPHEN 325 MG TABLET PO PRN (02:07)
--- NOTE | 2018-07-06 02:07 | NUR ---
GPS RN NOTE PT WOKE UP C/O HEADACHE 01/23, TYLENOL 650 MG PO GIVEN.
--- NOTE | 2018-07-06 03:07 | NUR ---
GPS RN NOTE PT FALL ASLEEP, AROUSABLE. HEADACHE SUBSIDED 11/25.
[2018-07-06 08:00] VITALS: BP 135/67
[2018-07-06] MEDS: DIVALPROEX SODIUM 125 MG CAP.SPRINK PO SCH (08:32)
[2018-07-06] MEDS: BENZTROPINE MESYLATE (1 MG) 1 MG TABLET PO SCH (08:32)
[2018-07-06] MEDS: HALOPERIDOL 5 MG TABLET PO SCH (08:32)
[2018-07-06] MEDS: FERROUS SULFATE (325 MG) 325 MG/TAB TABLET PO SCH (08:32)
[2018-07-06] MEDS: MAGNESIUM OXIDE 400 MG TABLET PO SCH (08:33)
[2018-07-06] MEDS: CALCIUM CARB 600MG /VIT D 1 EACH TABLET PO SCH (08:34)
[2018-07-06 08:47] VITALS: BP 135/85
[2018-07-06] MEDS: HYDROCHLOROTHIAZIDE 25 MG TABLET PO SCH (08:47)
--- NOTE | 2018-07-06 13:30 | NUR ---
GPS UX VISUAL DESIGNER NOTE: PATIENT DISCHARGE TO [facility] [address] [place] [address]. VIA AMBULANCE PT IN STABLE CONDITION, NO S/S DISTRESS NOTED , COMPLIANT WITH MEDICATIONS AND TX , AMBULATORY DENIES SI/HI. EXIT CARE DONE ,PRINTED, PT REFUSED TO SIGN PAPERS , SKIN INTACT , ALL BELONGINGS AND VALUABLES RETURNED TO PT. REPORT GIVEN PT RN IN SNF.
--- NOTE | 2018-07-06 15:17 | NUR ---
DISCHARGE NOTE: Pt discharged at 1300 to [facility] ([facility]) [address] [facility] [place] [address] P: [phone] via [facility] ambulance trip #[id number]. Pts son Zonia [phone] and caregiver Laura [phone] were notified and caregiver agreed with discharge plan. Pts mood was pleasant with congruent affect and denied suicidal/homicidal ideations and denied visual/auditory hallucination. Pt will be under the medical care of Psychiatrist: Dr. Sellers Address: [address] [place] [address] and Communications Clerk: Dr Vargas Address: [address] [address] [phone]. also notified pts therapist Alejandrina Teixeira [phone] who will visit pt at facility. The multidisciplinary exitcare form was done, printed, signed, and given to the patient.
== END 2018-07-06 13:20 | DRG 885 ==
LOC: ER 14:20 → GPS 17:57
PROVIDERS: ADMIT Psychiatry & Neurology Psychiatry; ATTEND Psychiatry & Neurology Psychiatry
DX: F31.9 Bipolar disorder, unspecified (principal); E44.1 Mild protein-calorie malnutrition; F41.9 Anxiety disorder, unspecified; I10 Essential (primary) hypertension; F03.90 Unspecified dementia, unspecified severity, without behavioral disturbance, psychotic disturbance, mood disturbance, and anxiety; Z79.899 Other long term (current) drug therapy; Z73.6 Limitation of activities due to disability; F25.9 Schizoaffective disorder, unspecified; E83.42 Hypomagnesemia; E87.6 Hypokalemia
CPT/HCPCS: 36415; 80048-TC; 80053-TC; 80076-TC; 80164-TC; 80305; 81000-TC; 84443-TC; 85025-TC; 87081-TC; A4606; G0480; J1630; Z7610

== ENCOUNTER 2019-08-18 13:35 | Inpatient (IN) | payer MEDICARE, MEDICAID ==
[~2019-08-18] VITALS: Ht 157.5 cm; Wt 50.3 kg
[~2019-08-18 13:35] MED LIST: CALC-261 PO; FERR325T23 PO; HYDR12.55 PO; MAGN200T5 PO; OLAN5TAB3 PO; RISP0.5T20 PO; TEMA15CA PO
--- NOTE | 2019-08-18 13:54 | NUR ---
PT WOO GOYAL FROM HOME FOR MEDICAL CLEARANCE PRIOR TO GPS ADMISSION FOR GRAVE DISABILITY, PT IS AAOX2, NOT IN RESPIRATORY DISTRESS, HOOKED TO MONITOR, KEPT RESTED AND COMFORTABLE, AWAITING ER MDFOR EVAL, WILL CONTINUE TO MONITOR.
--- NOTE | 2019-08-18 14:05 | NUR ---
SEEN AND EXAMINED BY
[2019-08-18] MEDS ORDERED: DIVA-76 PO (14:14)
--- NOTE | 2019-08-18 14:17 | NUR ---
URINE SPECIMEN COLLECTED AND SENT TO LAB.
--- NOTE | 2019-08-18 14:21 | NUR ---
ER PHLEB AT BEDSIDE FOR BLOOD DRAW.
[2019-08-18 14:26] LABS: APPEARANCE,URINE Clear (CLEAR); BILIRUBIN,URINE SMALL (NEGATIVE); BLOOD, URINE Negative Ery/uL (NEGATIVE); COLOR,URINE Yellow (YELLOW); KETONES,URINE 15 (NEGATIVE); LEUKOCYTE ESTERASE ,URINE Negative (NEGATIVE); NITRITE, URINE Negative (NEGATIVE); PH,URINE 6.5 (5.0-8.0); PROTEIN,URINE Negative (NEGATIVE); UGLUCOSE Negative (NEGATIVE); UROBILINOGEN,URINE 0.2 EU/dL (0.2)
[2019-08-18 14:29] LABS: BACTERIA,URINE Few /HPF (None Seen); RBC,URINE 0-2 /HPF (0-2); SQUAMOUS EPITHELIAL CELL,UR Few /HPF (None Seen); WBC,URINE 0-2 /HPF (0-3)
[2019-08-18 15:05] LABS: BASOPHILS % (AUTO) 0.4 % (0.0-2.0); EOSINOPHILS % (AUTO) 0.7 % (0.0-6.0); HEMATOCRIT 38 % (33-45); HEMOGLOBIN 12.6 g/dL (11.5-14.8); LYMPHOCYTES % (AUTO) 30.6 % (20.0-44.0); MEAN CORPUSCULAR HGB CONC 34 g/dl (31.0-36.0); MEAN CORPUSCULAR VOLUME 98 fL (82-100); MONOCYTES # (AUTO) 0.9 /CMM (0.1-1.30); MONOCYTES % (AUTO) 14.1 % (2.0-12.0); NEUTROPHILS # (AUTO) 3.5 /CMM (1.8-8.9); NEUTROPHILS % (AUTO) 54.2 % (43.0-81.0); PLATELET COUNT (AUTO) 164 /CMM (150-450); RED BLOOD CELL COUNT(AUTO) 3.83 MIL/uL (4.0-5.2); WHITE BLOOD COUNT (AUTO) 6.5 K/uL (4.3-11.0)
[2019-08-18 15:12] LABS: CALCIUM, SERUM 9.6 mg/dL (8.5-10.1); CARBON DIOXIDE 28 mmol/L (21-32); CHLORIDE 106 mmol/L (98-107); CREATININE 0.7 mg/dL (0.6-1.3); GLUCOSE 95 mg/dL (74-106); POTASSIUM 3.6 mmol/L (3.5-5.1); SODIUM SERUM 141 mmol/L (136-145); UREA NITROGEN, BLOOD 8 mg/dL (7-18)
[2019-08-18 15:19] LABS: ALANINE AMINOTRANSFERASE 36 U/L (12-78); ALBUMIN 3.5 g/dL (3.4-5.0); ALKALINE PHOSPHATASE 83 U/L (46-116); ASPARTATE AMINOTRANSFERASE 36 U/L (15-37); BILIRUBIN,DIRECT 0.1 mg/dL (0.0-0.2); BILIRUBIN,TOTAL 0.4 mg/dL (0.2-1.0); TOTAL PROTEIN, SERUM 6.7 g/dL (6.4-8.2)
[2019-08-18 15:20] LABS: ACETAMINOPHEN < 2 ug/ml (10-30); SALICYLATE < 2.8 mg/dL (2.8-20.0)
[2019-08-18 15:27] LABS: ALCOHOL, BLOOD < 3 mg/dL (0-0)
--- NOTE | 2019-08-18 17:40 | NUR ---
REPORT GIVEN TO DOMINGUEZ BALDWIN FOR KIMBER
[2019-08-18 18:23] VITALS: BP 127/50
--- NOTE | 2019-08-18 18:24 | NUR ---
GPS/RN-NOTES RECEIVED 69 Y.O FEMALE PATIENT FROM [facility] ER. PATIENT ON [address] RAYO ( PSYCHIATRIST) MADE AWARE BY THE CHARGE NURSE WITH ORDERS.PATIENT ALERT ORIENTED X2 ,AMBULATORY STEADY GAIT.ALEX BRAY ( MARINE EQUIPMENT TEST ENGINEER) MADE AWARE OF THE ADMISSION. CONTRABAND DONE.WILL ENDORSE TO INCOMING NURSE FOR THE ADMISSION PROCESS AND CONTINUITY OF CARE.
[2019-08-18] MEDS ORDERED: MAG HYDROX/AL HYDROX/SIMETH 30 ML UDC PO PRN (18:30)
[2019-08-18] MEDS ORDERED: BLOOD SUGAR DIAGNOSTIC 1 EACH STRIP IN ONE (18:30)
[2019-08-18] MEDS ORDERED: MAGNESIUM HYDROXIDE 30 ML UDC PO PRN (18:30)
--- NOTE | 2019-08-18 20:00 | NUR ---
GPS/ADOPTION MANAGER NOTE: ADMITTED A 69 TEAR OLD FEMALE FO 550 HOLD FOR GD. PATIENT CAME FROM [facility], INITIALLY FORM HOME, CAME TO THE UNIT AROUND 1800. PATIENT RECEIVED RESTING COMFORTABLY IN BED. PATIENT SHOWS NO S/S OF ANY PAIN, BREATHING PATTERN NON-LABORED, NO APPARENT DISTRESS NOTED. PER HOLD PATIENT WAS DISPLAYING BIZARRE DISORGANIZED BEHAVIOR, INSIDE HER APARTMENT UNIT AND STATED THAT SHE DID NOT EAT 2-3 DAYS, NOT SLEEPING, NOT TAKING HER MEDS. SHE WAS ALSO HALLUCINATING LEIGHANN HER "EVIL SISTER". WAS INSIDE HER BEDROOM. UPON FACE TO FACE, SHE WAS TALKING IN A DISORGANIZED FASHION, UP LATE AT NIGHT YELLING OUTSIDE, KNOCKING TRYING TO OPEN THE DOORS OF HER NEIGHBORS, SHE WAS ALSO HAVING DELUSIONS AND AUDITORY HALLUCINATIONS. SHE IS UNABLE TO VERBALIZE ANY PLANS FOR SELF CARE. SHE LIVES WITH HER CAREGIVER AT HOME. BELONGINGS INVENTORIED AND CHECKED FOR CONTRABAND. SHE IS A/O X3, STATED HER NAME, CORRECT TIME AND THAT SHE IS AT THE HOSPITAL. PATIENT IS AMBULATORY/STEADY GAIT, COOPERATIVE BUT PROVIDES ONLY INFORMATIONS DETENTION, SHE TURNED HER BACK AND STOPPED RESPONDING TO QUESTIONNAIRES. ATTEMPTED 2X BUT REFUSED. PATIENT REFUSED GEN. BODY SKIN ASSESSMENT AND PHOTO, SHE SAID, " THAT'S BAD."MRSA SCREEN DONE IN ER. PAGED DR. MARIN FOR MED RECONCILIATION, SAID THAT HE WILL TAKE CARE OF IT. PATIENT IS UNDER THE PSYCHIATRIC CARE OF SR. RAYO WITH ORDERS NOTED. PATIENT REFUSED TO SIGN LEGAL CONSENT. PROVIDED PATIENT WITH MEDICATION GUIDE AND PATIENT'S RIGHTS. HER SON WAS NOTIFIED, JENNIFER MARTINEZ [phone] ABOUT ADMISSION, LEFT A MESSAGE. ENVIRONMENTAL SAFETY CHECK DONE. PLACED PATIENT ON FALL PRECAUTION, BED ALARM ON, BED LOCKED AND PLACED ON LOWEST POSITION. I.D BAND ON. WILL CONTINUE TO MONITOR Q 15 MINS. FOR SAFETY AND BEHAVIOR. Addendum: 08/19/19 at 0043 by XANDER AGARWAL RN A 69 YEAR OLD FEMALE PATIENT WAS ADMITTED ON 5150 HOLD FOR GD, INITIALLY CAME FROM HOME/APARTMENT. Addendum: 08/19/19 at 0046 by XANDER AGARWAL RN GPS/RN NOTE: ADMITTED A 69 YEAR OLD FEMALE FROM [facility]/ ON 5150 HOLD FOR GD.
[2019-08-18 20:05] VITALS: BP 124/54
--- NOTE | 2019-08-18 20:39 | NUR ---
Paged Dr. Lacy for med reconciliation, no response, awaiting call back.
--- NOTE | 2019-08-18 20:40 | NUR ---
PATIENT'S SON, JUAN RODRIGUEZ WAS NOTIFIED OF ADMISSION, NO RESPONSE, LEFT A MESSAGE VIA VOICEMAIL. .
--- NOTE | 2019-08-18 20:42 | NUR ---
PATIENT REFUSED SKIN ASSESSMENT, STATED, " THAT'S BAD."
--- NOTE | 2019-08-18 20:42 | NUR ---
PATIENT REFUSED PHOTO TAKEN.
--- NOTE | 2019-08-18 20:43 | NUR ---
MRSA SCREEN DONE IN ER.
--- NOTE | 2019-08-18 21:25 | NUR ---
Dr. Lacy called back, said that he will take care of the med recon.
[2019-08-19] MEDS: ACETAMINOPHEN 325 MG TABLET PO PRN ×2 (02:01→11:47)
--- NOTE | 2019-08-19 02:01 | NUR ---
C/O GENERALIZED BODY PAIN, TYLENOL 650 MG ATB PO GIVEN.
--- NOTE | 2019-08-19 05:27 | NUR ---
PATIENT WAS CALM, QUIET, APPROPRIATE, WELL GROOMED, TOOK HER PRN MEDICATION. ENCOURAGED MORE PO INTAKE, OFFERED HER MILK, CONSUMED 230 ML. NOTED TALKING TO HERSELF WHILE SLEEPING. REFUSED GEN. SKIN ASSESSMENT. STABLE CONDITION. BED KEPT ON LOWEST POSITION TO PREVENT FALL.
--- NOTE | 2019-08-19 05:36 | NUR ---
MED RECON NOT YET DONE. PLEASE FOLLOW-UP TODAY 08/19/19.
--- NOTE | 2019-08-19 06:23 | NUR ---
REFUSED TO HAVE SLEEPING PILL LAST NIGHT EXCEPT FOR WHAT SHE REQUESTED, THE TYLENOL FOR GEN. BODY PAIN.
[2019-08-19 08:00] VITALS: BP 109/65
--- NOTE | 2019-08-19 11:06 | NUR ---
Family Contact: SW called the pts son, Zonia ([phone]), and received his answering machine and the mail box was full.
--- NOTE | 2019-08-19 11:07 | NUR ---
Caregiver contact: SW called the pts caregiver, Laura ([phone]), but the mailbox was full for one of the numbers and the other number had a busy dial tone.
--- NOTE | 2019-08-19 11:26 | NUR ---
Initial Discharge Plan: Pt currently resides in her home alone located at [address] [place] [address], [place] [address]; ([phone]). Per pt, she would like to return to her home. TIM will work with the MD, the pt and the pts family regarding appropriate discharge planning. SW will form a safe and proper discharge.
[2019-08-19] MEDS: clonazePAM 0.5 MG TABLET PO PRN (11:50)
--- NOTE | 2019-08-19 11:51 | NUR ---
RN NOTE. PT C/O GENERAL DISCOMFORT AND ANXIOUSNESS. TYLENOL AND KLONOPIN ADMINISTERED. WILL MONITOR
--- NOTE | 2019-08-19 12:15 | NUR ---
RN NOTE- PT RESTING QUIETLY IN BED. NO ACUTE DISTRESS.
[2019-08-19] MEDS: DIVALPROEX SODIUM 250 MG TABLET.DR PO SCH ×2 (15:10→20:29)
[2019-08-19 15:56] VITALS: BP 111/59
[2019-08-19] MEDS: FERROUS SULFATE (325 MG) 325 MG/TAB TABLET PO SCH (17:02)
--- NOTE | 2019-08-19 17:47 | NUR ---
GPS/RN-NOTES PATIENT STRONGLY REFUSED FULL BODY ASSESSMENT,DESPITE EXPLANATIONS HOSPITAL POLICIES.
--- NOTE | 2019-08-19 19:13 | NUR ---
GPS/RN OPENING NOTES RECEIVED PATIENT IN BED, RESTING AND HAVE BEHAVIOR WITH CONSTANT NEED AND REASSURANCE ABOUT HAVING MEDICATION AT NIGHT. ABLE TO VERBALIZE NEEDS, WILL MONITOR AND KEEP SAFE. RECEIVED ENDORSEMENT FROM AM RN FOR KIMBER.
[2019-08-19 19:50] VITALS: BP 118/64
[2019-08-19 20:03] VITALS: BP 118/64
[2019-08-19] MEDS: OLANZAPINE 5 MG/TAB.RAPDIS PO SCH (21:07)
[2019-08-19] MEDS: TEMAZEPAM 7.5 MG CAPSULE PO PRN (21:58)
[2019-08-20 08:00] VITALS: BP 129/76
[2019-08-20] MEDS: DIVALPROEX SODIUM 250 MG TABLET.DR PO SCH ×2 (08:49→20:18)
[2019-08-20] MEDS: FERROUS SULFATE (325 MG) 325 MG/TAB TABLET PO SCH ×2 (08:49→16:25)
--- NOTE | 2019-08-20 09:42 | NUR ---
GPS/RN-NOTES PATIENT REFUSED LAB DRAW DESPITE EXPLANATIONS RISK AND BENEFITS.
[2019-08-20 16:00] VITALS: BP 100/68
[2019-08-20] MEDS: clonazePAM 0.5 MG TABLET PO PRN (19:39)
[2019-08-20 19:56] VITALS: BP 128/66
[2019-08-20] MEDS: OLANZAPINE 5 MG/TAB.RAPDIS PO SCH (21:02)
[2019-08-21 08:00] VITALS: BP 118/69
[2019-08-21] MEDS: DIVALPROEX SODIUM 250 MG TABLET.DR PO SCH ×2 (08:25→21:07)
[2019-08-21] MEDS: FERROUS SULFATE (325 MG) 325 MG/TAB TABLET PO SCH ×2 (08:25→17:48)
[2019-08-21 16:00] VITALS: BP 108/76
[2019-08-21 20:00] VITALS: BP 120/58
[2019-08-21 20:17] VITALS: BP 120/58
[2019-08-21] MEDS: OLANZAPINE 5 MG/TAB.RAPDIS PO SCH (21:07)
--- NOTE | 2019-08-21 22:00 | NUR ---
GPS RN notes Pt refused to have weekly skin assessment done and pictures taken. Pt only allowed to have Pt's right and left hand assessment and also allowed to have pictures taken. Pictures placed in Pt's chart. Pt's Left hand and right hand showed skin discoloration, redness and scab on right hand. Pt stated Pt's got it from chemo and when they inserted an IV on Pt's hand. Intervention: Keep clean and dry and will continue to monitor for any changes.
[2019-08-22] MEDS: clonazePAM 0.5 MG TABLET PO PRN (00:53)
--- NOTE | 2019-08-22 00:56 | NUR ---
GPS RN notes Pt is feeling anxious. Administered Klonopin 0.5mg/1 tab/PO as ordered for anxiety per Pt request. Pt stated "Do you have something for my anxiety?" Instructed to call. Safety precautions is maintained. Will continue to monitor [id number] check.
[2019-08-22 08:00] VITALS: BP 135/61
[2019-08-22] MEDS: DIVALPROEX SODIUM 250 MG TABLET.DR PO SCH ×3 (08:16→20:39)
[2019-08-22] MEDS: FERROUS SULFATE (325 MG) 325 MG/TAB TABLET PO SCH ×2 (08:17→17:14)
[2019-08-22] MEDS: OLANZAPINE 5 MG/TAB.RAPDIS PO SCH ×2 (09:06→20:39)
--- NOTE | 2019-08-22 15:00 | NUR ---
GROUP NOTE: SW encouraged pt to participate in group therapy on this present day discussing "discharge planning." Pt refused to attend and stated she did not want to leave her room. Pt was laying in bed reading a magazine and talking to her self.
[2019-08-22 16:17] VITALS: BP 151/90
[2019-08-22] MEDS: TEMAZEPAM 7.5 MG CAPSULE PO PRN (20:39)
[2019-08-22 21:05] VITALS: BP 114/48
[2019-08-23 08:00] VITALS: BP 146/80
[2019-08-23] MEDS: FERROUS SULFATE (325 MG) 325 MG/TAB TABLET PO SCH ×2 (08:47→16:11)
[2019-08-23] MEDS: OLANZAPINE 5 MG/TAB.RAPDIS PO SCH ×2 (08:47→21:04)
[2019-08-23] MEDS: DIVALPROEX SODIUM 250 MG TABLET.DR PO SCH ×3 (08:47→21:04)
[2019-08-23] MEDS: ACETAMINOPHEN 325 MG TABLET PO PRN (10:27)
--- NOTE | 2019-08-23 10:28 | NUR ---
GPS/RN-NOTES PATIENT REQUESTING TYLENOL FOR GENERALIZED BODY PAIN. TYLENOL 650MG P.O GIVEN PRN ORDER.WILL CONT. MONITORING FOR SAFETY.
--- NOTE | 2019-08-23 11:15 | NUR ---
Caregiver Contact: TIM called the pts caregiver, Laura ([phone]), and left a message on his voicemail regarding the pts treatment and discharge plan.
--- NOTE | 2019-08-23 11:17 | NUR ---
Family Contact: TIM called the pts son, Zonia ([phone]), and was redirected to the mailbox which was full. TIM was unable to leave a message regarding the pts treatment.
--- NOTE | 2019-08-23 11:30 | NUR ---
GPS/RN-NOTES PATIENT WALKING IN THE ROOM,DENIES ANY PAIN OR DISCOMFORT AT THIS TIME.
[2019-08-23] MEDS: ENSURE ENLIVE CHOC 237 ML CAN PO SCH ×2 (15:28→17:30)
[2019-08-23 16:00] VITALS: BP 100/53
[2019-08-23] MEDS: clonazePAM 0.5 MG TABLET PO PRN (16:11)
--- NOTE | 2019-08-23 16:13 | NUR ---
GPS/RN-NOTES PATIENT STATED" I'M VERY ANXIOUS I NEED MEDICINE".KLONOPIN 0.5MG P.O GIVEN PRN ORDER. WILL CONT. MONITORING FOR SAFETY AND BEHAVIOR.
--- NOTE | 2019-08-23 17:15 | NUR ---
GPS/RN-NOTES PATIENT LAYING IN BED,CALM NO ACUTE DISTRESS NOTED.
[2019-08-23 20:24] VITALS: BP 124/74
[2019-08-23] MEDS: TEMAZEPAM 7.5 MG CAPSULE PO PRN (21:04)
[2019-08-24 08:00] VITALS: BP 107/59
[2019-08-24] MEDS: DIVALPROEX SODIUM 250 MG TABLET.DR PO SCH ×3 (08:07→21:22)
[2019-08-24] MEDS: OLANZAPINE 5 MG/TAB.RAPDIS PO SCH ×2 (08:07→21:00)
[2019-08-24] MEDS: FERROUS SULFATE (325 MG) 325 MG/TAB TABLET PO SCH ×2 (08:07→16:57)
[2019-08-24] MEDS: ENSURE ENLIVE CHOC 237 ML CAN PO SCH ×2 (08:11→16:59)
--- NOTE | 2019-08-24 08:46 | NUR ---
Caregiver Contact: TIM called the pts caregiver, Laura ([phone]), who stated that he has been in the hospital and was released yesterday and therefore he was unable to return the call of the SW. SW informed him about the pts treatment plan and then informed him about the pts discharge plan as well. SW stated that the pt is not appropriate for a discharge home and may need to be placed in a SNF short term. Pts caregiver stated that he agreed. TIM will inform the pts caregiver about any updates.
--- NOTE | 2019-08-24 08:49 | NUR ---
Family Contact: TIM called the pts son, Zonia ([phone]), and was redirected to the mailbox which was full. TIM was unable to leave a message regarding the pts treatment.
--- NOTE | 2019-08-24 09:54 | NUR ---
SNF Referral: TIM faxed a referral to [facility] with attention to Joycelyn to the fax number: [phone].
--- NOTE | 2019-08-24 15:53 | NUR ---
Group Note: SW encouraged pt to participate in group therapy on 08/24/19 at 2pm discussing the topic of depression. Pt stated that she does not need group therapy but needs to go home because her sister lives there with her and will be concerned for her. SW explained why the pt was in the hospital and the individuals that she has been in contact with but the pt refused to listen.
[2019-08-24 16:00] VITALS: BP 114/71
[2019-08-24 20:34] VITALS: BP 124/74
[2019-08-25 08:00] VITALS: BP 122/49
[2019-08-25] MEDS: FERROUS SULFATE (325 MG) 325 MG/TAB TABLET PO SCH ×2 (08:37→16:45)
[2019-08-25] MEDS: ENSURE ENLIVE CHOC 237 ML CAN PO SCH ×2 (08:37→17:42)
[2019-08-25] MEDS: DIVALPROEX SODIUM 250 MG TABLET.DR PO SCH ×3 (08:37→20:47)
[2019-08-25] MEDS: OLANZAPINE 5 MG/TAB.RAPDIS PO SCH (08:40)
--- NOTE | 2019-08-25 08:40 | NUR ---
RN NOTE: PATIENT REFUSED ZYPREXA. STATES IT MAKES HER FEEL SICK. PATIENT ALSO REQUESTING TO TAKE CALCIUM 500 MG W/ VITAMIN D BID. WILL INFORM MD. Addendum: 08/25/19 at 1319 by JONAH PALACIO RN INFORMED DR YODER. ORDERED OS AND MG+ REQUESTED BY PATIENT.
--- NOTE | 2019-08-25 09:48 | NUR ---
SNF Contact: Joycelyn ([phone]) from [facility] contacted the SW and stated that the pt was accepted to their facility. He requested to be informed about the discharge ahead of time due to lack of bed availability.
--- NOTE | 2019-08-25 14:20 | NUR ---
PT. REQUESTED FOR A WRIT OF [employer] AND WRIT FORM FAXED TO THE COURT AT [phone]. SPOKE TO ANNIE AND SAID THEY RECEIVED THE WRIT FORM FOR THE PATIENT. Addendum: 08/25/19 at [address] RAYO MADE AWARE.
[2019-08-25 16:31] VITALS: BP 126/57
--- NOTE | 2019-08-25 17:30 | NUR ---
RN NOTE: SPOKE TO DR RAYO AND INFORMED HIM THAT PATIENT FEELS SICK TAKING ZYPREXA AND IS REQUESTING TO TAKE RISPERDAL (STATED SHE PREVIOUSLY TOOK IT). MD ORDERED RISPERDAL. ALSO, CLARIFIED FREQUENCY OF DEPAKOTE (Q12 HOURS AND Q5PM). WAS INSTRUCTED TO KEEP THE SAME FREQUENCY.
[2019-08-25 20:00] VITALS: BP 115/48
--- NOTE | 2019-08-25 20:00 | NUR ---
RN NOTES: PT TALKING OVER THE PHONE WITH A FAMILY MEMBER
[2019-08-25 20:01] VITALS: BP 115/48
--- NOTE | 2019-08-25 20:05 | NUR ---
RN NOTES: MET WITH PT AT BED SIDE, PT A/O X2, COOPERATIVE, CURRENTLY SPEAKING WITH FAMILY OVER THE PHONE. PT IS AMBULATORY, CONTINENT, MED COMPLIANT. PER REPORT THERE ARE EPISODE OF PT BEING IRRITABLE AND ARGUMENTATIVE. PT REFUSED SKIN CHECK/BODY CHECK. DENIES ANY SI/HI AT THIS TIME. SAFETY PRECAUTIONS FOR FALL INITIATED, SIDE RAILS UP X2 FOR SAFETY. WILL CONTINUE MONITORING PT [id number] FOR SAFETY AND ANY CHANGES IN BEHAVIOR.
--- NOTE | 2019-08-25 20:16 | NUR ---
RN NOTES: NOTED NEW MEDICATION ORDER FOR RISPERDAL, PENDING VERIFICATION. MEDICATIONS NEEDS CONSENT. MECHANICAL UNIT REPAIRER DERICK MADE AWARE, HE STATED THERE SHOULD BE A FILLED OUT CONSENT FORM SIGNED BY PSYCH FOR EVERY NEW ORDER OF PSYCH MEDICATION. CHECKED PT'S CHART, BUT NOTHING WAS FOUND REGARD TO CONSENT FORM, ALSO CHECK OTHER PATIENT'S CHART POSSIBILITY OF HAVING IT PLACED TO DIFFERENT CHART, BUT NOTHING WAS FOUND. ASKED KENNEL ATTENDANT FOR RECOMMENDATION, SHOULD I CALL PSYCH /DR RAYO AND GET T/O CONSENT OR FOLLOW UP IN AM, PER KENNEL ATTENDANT IT NEEDS TO BE MADE AND SIGNED BY PSYCH IN PERSON AND MD NEEDS TO EDUCATE PT, NOTIFY PT ABOUT NEW PSYCH MEDS AND ASKED CONSENT OF PATIENT REGARDING THE NEW MEDICATION.
--- NOTE | 2019-08-25 20:48 | NUR ---
RN NOTES: OFFERED PM CARE TO PT, STATED SHE JUST WANTED TO REST, AGREE TO TAKE SCHEDULE NIGHT TIME MEDICATION. INFORMED PT ABOUT AVAILABILITY OF SLEEPING PILL AND ANXIETY PILL, PT STATED SHE DOESN'T NEED ANY OF THOSE TONIGHT.
--- NOTE | 2019-08-26 01:13 | NUR ---
RN NOTES: PT SLEEPING AT THIS TIME, NO S/S OF SOB NOTED. APPEARS CALM AND COMFORTABLE.
[2019-08-26 08:00] VITALS: BP 122/69
[2019-08-26] MEDS: ENSURE ENLIVE CHOC 237 ML CAN PO SCH ×2 (08:21→17:03)
[2019-08-26] MEDS: FERROUS SULFATE (325 MG) 325 MG/TAB TABLET PO SCH ×2 (08:21→17:03)
[2019-08-26] MEDS: DIVALPROEX SODIUM 250 MG TABLET.DR PO SCH ×3 (08:21→20:23)
[2019-08-26] MEDS: MAGNESIUM OXIDE 400 MG TABLET PO SCH (08:40)
[2019-08-26] MEDS: CALCIUM CARB 250MG /VITAMIN D 1 UDTAB PO SCH (08:40)
--- NOTE | 2019-08-26 14:18 | NUR ---
Individual Intervention: TIM met with the pt with the pts MD, Dr. Parry, to discuss the pts discharge. She stated that she will refuse a correction placement. stated that the pt can be discharged back home on Thursday.
--- NOTE | 2019-08-26 14:18 | NUR ---
Caregiver contact: SW called the pts caregiver, Laura ([phone]), but the mailbox was full for one of the numbers and the other number had a busy dial tone.
--- NOTE | 2019-08-26 14:59 | NUR ---
RN NOTE- DR RAYO MADE AWARE OF RISPERDAL CONSENT. STATED HE WILL ADDRESS TOMORROW MORNING.
[2019-08-26 16:00] VITALS: BP 126/58
--- NOTE | 2019-08-26 19:15 | NUR ---
ASLEEP, BREATHING PATTERN NON-LABORED, NO APPARENT DISTRESS NOTED. ENVIRONMENTAL SAFETY CHECK DONE. PLACED ON FALL PRECAUTION. BED ALARM ON, BED LOCKED AND PLACED ON LOWEST POSITION. WILL CONTINUE TO MONITOR Q 15 MINS. FOR SAFETY AND BEHAVIOR.
[2019-08-26 20:48] VITALS: BP 117/44
[2019-08-27] MEDS: TEMAZEPAM 7.5 MG CAPSULE PO PRN (00:23)
--- NOTE | 2019-08-27 00:23 | NUR ---
C/O INSOMNIA, TEMAZEPAM 7.5 MG CAP 1 PO GIVEN.
[2019-08-27 08:00] VITALS: BP 131/64
[2019-08-27] MEDS: FERROUS SULFATE (325 MG) 325 MG/TAB TABLET PO SCH ×2 (08:13→17:19)
[2019-08-27] MEDS: DIVALPROEX SODIUM 250 MG TABLET.DR PO SCH ×3 (08:13→20:11)
[2019-08-27] MEDS: MAGNESIUM OXIDE 400 MG TABLET PO SCH (08:16)
[2019-08-27] MEDS: ENSURE ENLIVE CHOC 237 ML CAN PO SCH ×2 (08:17→17:19)
[2019-08-27] MEDS: risperiDONE 1 MG TABLET PO SCH ×2 (12:22→17:18)
[2019-08-27 16:00] VITALS: BP 119/57
[2019-08-27 20:00] VITALS: BP 139/56
[2019-08-28] MEDS: TEMAZEPAM 7.5 MG CAPSULE PO PRN ×2 (01:45→20:54)
--- NOTE | 2019-08-28 01:49 | NUR ---
GPS RN NOTE: PATIENT REQUEST FOR SLEEPING MEDICATION, RESTORIL 7.5MG 1 CAP ORAL GIVEN PER MD ORDER. WILL CONTINUE TO MONITOR.
[2019-08-28 08:00] VITALS: BP 108/56
[2019-08-28] MEDS: FERROUS SULFATE (325 MG) 325 MG/TAB TABLET PO SCH ×2 (08:20→16:47)
[2019-08-28] MEDS: ENSURE ENLIVE CHOC 237 ML CAN PO SCH ×2 (08:20→16:47)
[2019-08-28] MEDS: MAGNESIUM OXIDE 400 MG TABLET PO SCH (08:20)
[2019-08-28] MEDS: risperiDONE 1 MG TABLET PO SCH ×2 (08:20→16:47)
[2019-08-28] MEDS: DIVALPROEX SODIUM 250 MG TABLET.DR PO SCH ×3 (08:20→20:09)
[2019-08-28 16:00] VITALS: BP 110/51
--- NOTE | 2019-08-28 19:32 | NUR ---
AWAKE, ALERT, ORIENTED X3, INITIATED INTERACTION, CALM, QUIET, COOPERATIVE, APPROPRIATE. MED COMPLIANT. AMBULATORY/STEADY GAIT. ENVIRONMENTAL SAFETY CHECK DONE. BED LOCKED AND PLACED ON LOWEST POSITION. BED ALARM ON. WILL CONTINUE TO MONITOR Q 15 MINS. TO MAINTAIN SAFETY.
[2019-08-28 19:46] VITALS: BP_SYST 105; BP_SYST 122; BP_DIAS 72; BP_DIAS 80
[2019-08-28 20:00] VITALS: BP 105/80
--- NOTE | 2019-08-28 20:43 | NUR ---
GPS/RN NOTE: GAVE REPORT TO DOMINGUEZ DUVAL FOR CONTINUITY OF CARE.
--- NOTE | 2019-08-28 20:54 | NUR ---
C/O INSOMNIA, TEMAZEPAM 15 MG CAP PO GIVEN
--- NOTE | 2019-08-28 21:00 | NUR ---
NOTE ABOVE CORRECTED: TEMAZEPAM 7.5 MG CAP 1 PO GIVEN NOT 15 MG. PATIENT'S ORDER IS TEMAZEPAM 7.5 MG 1 Q HS PRN . USER NOTE ERROR
--- NOTE | 2019-08-29 06:27 | NUR ---
GPS RN NOTE: PT SLEPT WELL. NO S/S OF DISTRESS. COMPLIANT WITH MEDS DUE. CONTINUE TO MONITOR.
[2019-08-29 08:00] VITALS: BP 110/56
[2019-08-29] MEDS: ENSURE ENLIVE CHOC 237 ML CAN PO SCH (08:27)
[2019-08-29] MEDS: DIVALPROEX SODIUM 250 MG TABLET.DR PO SCH (08:28)
[2019-08-29] MEDS: FERROUS SULFATE (325 MG) 325 MG/TAB TABLET PO SCH (08:28)
[2019-08-29] MEDS: CALCIUM CARB 250MG /VITAMIN D 1 UDTAB PO SCH (08:28)
[2019-08-29] MEDS: risperiDONE 1 MG TABLET PO SCH (08:28)
[2019-08-29] MEDS: MAGNESIUM OXIDE 400 MG TABLET PO SCH (08:29)
--- NOTE | 2019-08-29 08:58 | NUR ---
Caregiver contact: TIM called the pts caregiver, Laura ([phone]), and informed him that the pt will be discharged around 1-2pm today and he stated that he will send one of his yazidi members to the pts house to help her transition back in.
[2019-08-29 11:33] VITALS: BP 110/56
--- NOTE | 2019-08-29 11:41 | NUR ---
SW Contact: Yojana ([phone]), pts social work manager from [facility], will come out to the pts house on 09/02/19 at 11AM. She stated that she will be checking on the pt and will monitor her symptoms and clinical rn manager her medications. She stated that her nurse, Hui ([phone]), on the 09/01/19 around 9AM.
--- NOTE | 2019-08-29 14:19 | NUR ---
Discharge Note: Pt was discharged back to her home located at [address], [address], [place] [address]; ([phone]). Pt was transported via taxi at 2pm. SW spoke to pts caregiver, Laura Dawkins ([phone]), and informed him of the discharge. Upon discharge, the pt appeared to be in a euthymic mood and presented with a calm affect. Pt denied both suicidal and homicidal ideation as well as auditory and visual hallucinations. Pt was provided with smoking cessation referrals that are listed below. Pt has a social services technician, Yojana ([phone]), from [facility], who stated that she will make a home visit for the pt on 09/02/19 at 11AM. She stated that she will be checking on the pt and will monitor her symptoms and sr. manager marketing her medications. She stated that her nurse, Hui ([phone]), will be making a home visit on the 09/01/19 around 9AM. Pt will follow up with her psychiatrist, Brenna Briggs N.P, located at [facility] located at [address], [place] [address]; ; fax: . Pt has an appointment on 08/30/19 at 11AM. Pt will also be under the care of her supervisor welding equipment repairer, Dr. Dennis Le, located at [address], [place] [address]; . Smoking Cessation Referrals [employer] [id number]-[email or web address] [employer] [phone] Patient was also referred to the Nicotine Anonymous meeting on [address] [address] on Friday August 30, 2019 at 7:00 PM Addendum: 08/29/19 at 1422 by JORGE DUMONT Fax of records was sent to .
--- NOTE | 2019-08-29 15:00 | NUR ---
MANAGER BUSINESS OPERATIONS NOTE: 69 year old female pt discharged home in stable condition via taxi at 1400. Pt is compliant with medications and cooperative with treatment plans. Patient affect is appropriate and bright; mood is cheerful and calm. During treatment pt behavior improved, psychiatric treatment plans met, and medical treatment plans deferred for continual monitoring. Pt denied both suicidal and homicidal ideation as well as auditory and visual hallucinations. Patient instructed to go to the closest ER if developing SI/HI. Educated pt about after care plan and copy was provided. Personal belongings returned. Patient signed discharge paperwork. Pt will follow up with her psychiatrist, Brenna Briggs N.P, located at [facility] located at [address], [place] [address]; ; fax: . Pt has an appointment on 08/30/19 at 11AM. Pt will also be under the care of her slab stripper, Dr. Dennis Le, located at [address], [place] [address]; .
== END 2019-08-29 14:30 | disposition home or self-care (01) | DRG 885 ==
LOC: ER 13:45 → GPS 17:43
PROVIDERS: ADMIT Psychiatry & Neurology Psychiatry; ATTEND Nurse Practitioner Acute Care
DX: F25.9 Schizoaffective disorder, unspecified (principal); F23 Brief psychotic disorder; I10 Essential (primary) hypertension; G47.00 Insomnia, unspecified; F17.210 Nicotine dependence, cigarettes, uncomplicated; Z91.19 Patient's noncompliance with other medical treatment and regimen; F41.9 Anxiety disorder, unspecified; F31.9 Bipolar disorder, unspecified
CPT/HCPCS: 36415; 80048-TC; 80076-TC; 80305; 81000-TC; 82962-TC; 85025-TC; 87081-TC; G0480

== ENCOUNTER 2020-01-23 23:53 | Inpatient (IN) | payer MEDICARE, OTHER ==
[~2020-01-23] VITALS: Ht 152.4 cm; Wt 63.5 kg
[~2020-01-23 23:53] MED LIST changes: -OLAN5TAB3 PO; -RISP0.5T20 PO; -TEMA15CA PO
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
[2020-01-24 00:38] LABS: BASOPHILS # (AUTO) 0.3 /CMM (0.0-0.2); BASOPHILS % (AUTO) 3.5 % (0.0-2.0); EOSINOPHILS % (AUTO) 0.6 % (0.0-6.0); HEMATOCRIT 41 % (33-45); HEMOGLOBIN 13.8 g/dL (11.5-14.8); LYMPHOCYTES # (AUTO) 1.1 /CMM (0.8-4.8); MEAN CORPUSCULAR HGB CONC 34 g/dl (31.0-36.0); MEAN CORPUSCULAR VOLUME 99 fL (82-100); MONOCYTES # (AUTO) 1.1 /CMM (0.1-1.30); MONOCYTES % (AUTO) 10.8 % (2.0-12.0); NEUTROPHILS # (AUTO) 7.2 /CMM (1.8-8.9); NEUTROPHILS % (AUTO) 74.1 % (43.0-81.0); PLATELET COUNT (AUTO) 191 /CMM (150-450); RED BLOOD CELL COUNT(AUTO) 4.15 MIL/uL (4.0-5.2); WHITE BLOOD COUNT (AUTO) 9.8 K/uL (4.3-11.0)
--- NOTE | 2020-01-24 00:59 | NUR ---
URINE COLLECTED AND SENT TO LAB
[2020-01-24 01:05] LABS: APPEARANCE,URINE Clear (CLEAR); BILIRUBIN,URINE SMALL (NEGATIVE); BLOOD, URINE Trace-lysed Ery/uL (NEGATIVE); COLOR,URINE Yellow (YELLOW); KETONES,URINE 80 (NEGATIVE); LEUKOCYTE ESTERASE ,URINE Negative (NEGATIVE); NITRITE, URINE Negative (NEGATIVE); PH,URINE 5.5 (5.0-8.0); PROTEIN,URINE Negative (NEGATIVE); UGLUCOSE Negative (NEGATIVE); UROBILINOGEN,URINE 0.2 EU/dL (0.2)
[2020-01-24 01:15] LABS: BACTERIA,URINE Few /HPF (None Seen); SQUAMOUS EPITHELIAL CELL,UR Few /HPF (None Seen)
--- NOTE | 2020-01-24 01:27 | NUR ---
REPORT GIVEN TO MARJORIE MIX
[2020-01-24 01:29] LABS: ACETAMINOPHEN 0 ug/ml (10-30); ALANINE AMINOTRANSFERASE 22 U/L (12-78); ALBUMIN 4.1 g/dL (3.4-5.0); ALKALINE PHOSPHATASE 100 U/L (46-116); ASPARTATE AMINOTRANSFERASE 33 U/L (15-37); BILIRUBIN,DIRECT 0.2 mg/dL (0.0-0.2); CALCIUM, SERUM 8.9 mg/dL (8.5-10.1); CARBON DIOXIDE 20 mmol/L (21-32); CHLORIDE 104 mmol/L (98-107); CREATININE 1.1 mg/dL (0.6-1.3); GLUCOSE 94 mg/dL (74-106); POTASSIUM 3.6 mmol/L (3.5-5.1); SALICYLATE 1.1 mg/dL (2.8-20.0); SODIUM SERUM 140 mmol/L (136-145); TOTAL PROTEIN, SERUM 7.9 g/dL (6.4-8.2); UREA NITROGEN, BLOOD 13 mg/dL (7-18)
[2020-01-24 01:41] LABS: ALCOHOL, BLOOD < 3 mg/dL (0-0)
--- NOTE | 2020-01-24 01:44 | NUR ---
PT TRANSFERRED TO ROOM IN STABLE CONDITION
[2020-01-24] MEDS ORDERED: MAGNESIUM HYDROXIDE 30 ML UDC PO PRN (02:30)
[2020-01-24] MEDS ORDERED: MAG HYDROX/AL HYDROX/SIMETH 30 ML UDC PO PRN (02:30)
[2020-01-24] MEDS ORDERED: BLOOD SUGAR DIAGNOSTIC 1 EACH STRIP IN ONE (02:30)
--- NOTE | 2020-01-24 02:30 | NUR ---
GPS RN NOTES : PT. REFUSED INTIALLY BLOOD SUGAR CHECK , ENCOURAGED X3 STILL REFUSED, AND PT. BEHAVIOR VERY UNCOOPRTIVE, AGGRESSIVE, PER PT. I AM NOT DIABETIC WILL CONTINUITY WITH CARE.
[2020-01-24 02:43] VITALS: BP 141/66
[2020-01-24 03:10] VITALS: BP 128/66
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
--- NOTE | 2020-01-24 03:48 | NUR ---
GPS RN NOTES : PT. REFUSED FULL BODY SKIN ASESSMENT AND PICTURES , ENCOURAGED X3 STILL REFUSED, AND PT. BEHAVIOR VERY UNCOOPRTIVE AND AGGRESSIVE, WILL CONTINUITY WITH CARE.
--- NOTE | 2020-01-24 03:50 | NUR ---
RN NOTES: INFORMED SUPERVISOR FELLING BUCKING JOSE GARCIA FOR THE MED RECON ,PER JOSE GARCIA , LET THE MD KNOW IN THE MORNING.
--- NOTE | 2020-01-24 06:20 | NUR ---
REFUSED FULL BODY ASSESSMENT PATIENT REFUSED FULL BODY ASSESSMENT & PICTURES. PT KEPT COVERING HERSELF & REFUSED TO CHANGE INTO GOWN, GOT AGITATED & ANXIOUS, CRYING, BECAME VERY LOUD WHEN ATTEMPTED TO DO BODY ASSESSMENT. UNABLE TO DO BODY ASSESSMENT DUE TO PATIENT'S NON COMPLAINT BEHAVIOR. WILL ENDORSE TO AM RN.
--- NOTE | 2020-01-24 06:40 | NUR ---
NOTIFIED CALLED DR. RAYO & NOTIFIED HIM ABOUT PATIENT'S ADMISSION AT [facility], [facility].
--- NOTE | 2020-01-24 06:49 | NUR ---
GPS RN NOTE PATIENT GOT OUT OF BED, AMBULATED NEXT TO HER BED, NOTED TO BE UNSTEADY AT THIS TIME, PT. STATED SHE IS GOOD AT WALKING & SHE IS TIRED NOW & THAT'S WHY SHE IS UNSTEADY. MADE AWARE WITH NEW ORDER TO HAVE PT EVAL DONE FOR SAFETY & FALL PREVENTION. WILL ENDORSE TO AM RN.
--- NOTE | 2020-01-24 07:07 | NUR ---
NOTIFIED SON JENNIFER CALLED AT [phone] & SPOKE TO ROBB RODRIGUEZ & NOTIFIED HIM ABOUT PATIENT'S ADMISSION AT [facility], [facility].
--- NOTE | 2020-01-24 07:48 | NUR ---
RN OPENING NOTE: RECEIVED PT LYING IN BED. A+OX1. VSS, AFEBRILE. PT LABILE AND TEARFUL. PT EASILY AGITATED AND IRRITABLE. PT RESPONDING TO INTERNAL STIMULI AND TALKING TO PEOPLE WHO ARE NOT THERE. PT UNABLE TO COMPREHEND REASON FOR ADMISSION. PT PARANOID AND DELUSIONAL. PT NEEDS FREQUENT REDIRECTION. HYPERVERBAL AND UNPREDICTABLE BEHAVIOR. URINALYSIS ASSESSED AND WILL DISCUSS WITH MD. PT DENIES SI/HI AT PRESENT TIME. WILL CONT TO MONITOR PT FOR BEHAVIOR AND SAFETY PER GPS PROTOCOL.
[2020-01-24 08:00] VITALS: BP 153/74
[2020-01-24] MEDS ORDERED: PANT40TA4 PO (09:25)
[2020-01-24] MEDS ORDERED: ALEN70TA6 PO (09:25)
[2020-01-24] MEDS: CALCIUM CARB 600MG /VIT D 1 EACH TABLET PO SCH ×2 (12:00→12:12)
--- NOTE | 2020-01-24 13:06 | NUR ---
COLLATERAL CONTACT: TIM contacted pts caregiver Laura [phone] for collateral information but his number was disconnected and no longer in service.
--- NOTE | 2020-01-24 13:07 | NUR ---
FAMILY CONTACT: SW contacted pts son Zonia [phone] and left a voicemail for callback for collateral information and discharge planning.
--- NOTE | 2020-01-24 13:24 | NUR ---
INITIAL DISCHARGE PLAN: Pt currently resides in her home alone located at [address] [place] [address], [place] [address]; ([phone]). Pt may need short-term SNF placement. SW will work with the MD, the pt and the pts family regarding appropriate discharge planning. SW will form a safe and proper discharge.
--- NOTE | 2020-01-24 13:41 | NUR ---
HOME HEALTH: SW received a call from Laina Julio, network systems administrator at [facility] Address: [address], [address], [facility], [address] / [phone] who provided SW with collateral information. She states pt has been receiving home health services for the past 3 months. She states that pt began acting bizarre and confused 1 week ago, constantly calling the ROUTE DELIVERY SUPERVISOR and asking her to bring her food. She states that pts son is not involved with pts care and that pt spends most of her time home alone.
[2020-01-24 16:00] VITALS: BP 117/63
--- NOTE | 2020-01-24 16:10 | NUR ---
GROUP NOTE: SW encouraged pt to attend group therapy on this present day discussing "insight into mental illness." Pt not appropriate for group at this time. Pt is mumbling and rambling about unrelated things. Pt is speaking in gibberish. Pts mood is manic with blunted affect.
[2020-01-24] MEDS: FERROUS SULFATE (325 MG) 325 MG/TAB TABLET PO SCH (16:14)
[2020-01-24] MEDS: HALOPERIDOL 5 MG TABLET PO SCH (16:14)
[2020-01-24] MEDS: VALPROIC ACID 250 MG/5 ML UDC PO SCH ×2 (16:18→20:05)
[2020-01-24] MEDS: clonazePAM 0.5 MG TABLET PO PRN (16:30)
--- NOTE | 2020-01-24 16:30 | NUR ---
RN NOTE: PT WITH INCREASED AGITATION. PACING IN HALLWAY. PT NOT ABLE TO BE REDIRECTED. MEDICATED WITH KLONOPIN 0.5 MG PO PRN
--- NOTE | 2020-01-24 19:47 | NUR ---
GPS RN NOTES: REFUSED LABS LAB CALLED AND ASKED IF THEY CAN DRAW LABS FROM PT. WENT TO PTS ROOM TO ASK IF THEY ARE ABLE TO DRAW LAB. PT ASLEEP AND EASILY AGITATED WHEN WOKEN UP. EXPLAIN RISKS AND BENEFITS. PT STILL REFUSED X3. REPORTED TO CABINETMAKER HELPER. CABINETMAKER HELPER WILL TRY AGAIN LATER TOMORROW MORNING. CONTINUE TO MONITOR.
[2020-01-24 20:39] VITALS: BP 122/59
[2020-01-25] MEDS: ACETAMINOPHEN 325 MG TABLET PO PRN (04:48)
--- NOTE | 2020-01-25 04:50 | NUR ---
GPS RN NOTES: C/O PF BACK PAIN. PT C/O OF BACK PAIN OFFERED. PT STATED, " ITS MY BACK ." VITALS WNL. TYLENOL 650 MG PO PRN ORDERED. PT AGREED AND TOLERATED MEDICATION WELL CONTINUE TO MONITOR.
--- NOTE | 2020-01-25 06:06 | NUR ---
GPS RN NOTES: UNABLE TO DRAW BLOOD ENGINEERING DESIGNER CAME TODAY THIS MORNING UNABLE TO DRAW BLOOD DUE TO PTS VEINS. ENGINEERING DESIGNER UNABLE TO DRAW AND ATTEMPTED BUT STILL UNABLE TO DRAW. ENGINEERING DESIGNER WILL COME BACK LATER TODAY AND TRY AGAIN. WILL ENDORSE TO DAY SHIFT FOR F/U. CONTINUE TO MONITOR.
[2020-01-25 07:31] LABS: CHOLESTEROL 144 mg/dL (<200); HDL CHOLESTEROL 46 mg/dL (40-60); LDL 79 mg/dL (0-99); TRIGLYCERIDES 88 mg/dL (30-150)
[2020-01-25 08:00] VITALS: BP 101/67
[2020-01-25] MEDS: CALCIUM CARB 600MG /VIT D 1 EACH TABLET PO SCH (08:16)
[2020-01-25] MEDS: HALOPERIDOL 5 MG TABLET PO SCH ×2 (08:16→16:16)
[2020-01-25] MEDS: FERROUS SULFATE (325 MG) 325 MG/TAB TABLET PO SCH ×2 (08:16→16:16)
[2020-01-25] MEDS: VALPROIC ACID 250 MG/5 ML UDC PO SCH ×2 (08:16→21:00)
[2020-01-25] MEDS: HYDROCHLOROTHIAZIDE 25 MG TABLET PO SCH (08:22)
[2020-01-25] MEDS: MAGNESIUM OXIDE 400 MG TABLET PO SCH (08:22)
[2020-01-25] MEDS: PANTOPRAZOLE 40 MG TABLET.DR PO SCH (08:22)
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
--- NOTE | 2020-01-25 15:10 | NUR ---
GROUP NOTE: Pt was present in group discussing the topic of "insight into mental illness." Pt was standing around group then SW asked pt to sit down and pt sat away from group and kept talking loudly, SW asked pt several times to quiet down. Pt is not appropriate for group at this time. Pt is manic with labile mood and is confused and disorganized. Pt also makes nonsensical statements and is unable to engage in a conversation.
[2020-01-25 16:00] VITALS: BP 121/57
--- NOTE | 2020-01-25 19:10 | NUR ---
GPS RN NOTE RECEIVED PATIENT AMBULATING IN THE HALLWAY, STEADY GAIT, ALERT AND ORIENTED X1, DISORGANIZED, HYPERVERBAL, LABILE, PARANOID, ANXIOUS & RESTLESS AT TIMES. DENIES SI/HI AT THIS TIME. NO S/S OF ANY DISTRESS AT THIS TIME. PT BREATHING IS EVEN UNLABORED WITH EQUAL RISE AND FALL OF THE CHEST. STABLE ON ROOM AIR. NO C/O PAIN VERBALIZED AT THIS TIME. PT IS MEDICATION COMPLIANT. ENVIRONMENTAL SAFETY CHECKS DONE. FALL PRECAUTION CONTINUED. BED ALARM ON. BED IN LOW LOCKED POSITION. CALL GORDON WITHIN REACH. WILL CONTINUE TO MONITOR Q15MIN FOR MOOD, SAFETY AND BEHAVIOR
[2020-01-25 20:00] VITALS: BP 109/42
[2020-01-25 20:30] VITALS: BP 111/55
--- NOTE | 2020-01-25 20:51 | NUR ---
REFUSED LABS PATIENT REFUSED LABS, GOT AGITATED, ANXIOUS & RESTLESS & YELLED AT SHIPPING AND RECEIVING ASSOCIATE & RN. PULLED HER ARM AWAY & WANTED TO BE LEFT ALONE WITHOUT DRAWING BLOOD. PATIENT TOLD THE SHIPPING AND RECEIVING ASSOCIATE TO COME AGAIN IN AM.
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
--- NOTE | 2020-01-25 21:40 | NUR ---
REFUSED SKIN ASSESSMENT PATIENT CONTINUED TO REFUSE FULL BODY SKIN ASSESSMENT, PARANOID, HYPERVERBAL, USING INAPPROPRIATE LANGUAGE TOWARDS STAFF, RESTLESS, THROWING STUFF TOWARDS STAFF WHEN APPROACHED THE PATIENT TO REDIRECT. NON REDIRECTABLE. WILL CONTINUE TO MONITOR.
--- NOTE | 2020-01-25 22:00 | NUR ---
GPS RN NOTE PATIENT NOTED TO BE TIRED, UNSTEADY, IMPAIRED GAIT & BALANCE BUT REFUSED TO GO TO BED & REFUSED TO STAY IN BED. PATIENT IS HIGH FALL RISK AT THIS TIME DUE TO BEING TIRED & RESTLESS BUT PT. KEPT INSISTING TO WALK. ASSISTED HER TO VIKRAM CHAIR FOR FALL PREVENTION & SAFETY. ON 1:1 SUPERVISION. WILL CONTINUE TO MONITOR FOR ANY CHANGES.
--- NOTE | 2020-01-25 22:08 | NUR ---
REFUSED DEPAKOTE SYP PATIENT REFUSED TO TAKE DEPAKOTE SYP, OFFERED X 3. PATIENT IS VERY SUSPICIOUS, EASILY AGITATED, RESTLESS & ANXIOUS. PT. AGREED TO TAKE THE MEDICINE AT FIRST & AFTER SYP WAS OPENED & HANDED TO THE PATIENT, SHE ATTEMPTED TO THROW IT ON THE FLOOR. DESPITE OF RISKS & BENEFITS EXPLANATIONS, PT. CONTINUED TO REFUSE MEDICINE.
--- NOTE | 2020-01-26 00:45 | NUR ---
GPS RN NOTE PATIENT IS UP IN VIKRAM CHAIR, AWAKE, HYPERVERBAL WHEN STAFF ENGAGES IN CONVERSATION, GAVE HER SPACE TO CALM DOWN & WAS EFFECTIVE, UNABLE TO SLEEP, OFFERED RESTORIL BUT REFUSED. PATIENT REFUSED TO GO TO BED AT THIS TIME. WILL CONTINUE TO MONITOR.
[2020-01-26] MEDS: TEMAZEPAM 7.5 MG CAPSULE PO PRN (02:51)
--- NOTE | 2020-01-26 02:51 | NUR ---
REFUSED RESTORIL PATIENT IS UNABLE TO SLEEP, NOTED TO BE ANXIOUS & RESTLESS. OFFERED RESTORIL MULTIPLE TIMES BUT PATIENT THREW MEDICINE ON THE FLOOR & REFUSED TO TAKE IT. MEDICINE WAS WASTED & RECORDED.
--- NOTE | 2020-01-26 03:20 | NUR ---
GPS RN NOTE PATIENT REMAINS AWAKE & REFUSES TO GO TO BED DESPITE OF OFFERING ASSISTANCE MULTIPLE TIMES. CALM & QUIET AT THIS TIME.
--- NOTE | 2020-01-26 04:55 | NUR ---
GPS RN NOTE ASKED PATIENT AGAIN IF SHE IS READY TO GO TO BED, PATIENT AGREED, ASSISTED HER BACK TO BED, PT. REFUSED TO USE THE TOILET, ASKED TO PUT DIAPER ON INSTEAD. SKIN CARE PROVIDED, KEPT CLEAN & DRY. ASSISTED PATIENT TO BED. BED ALARM ON. BED IN LOW LOCKED POSITION. WILL CONTINUE TO MONITOR CLOSELY FOR SAFETY & BEHAVIOR.
--- NOTE | 2020-01-26 06:15 | NUR ---
GPS RN NOTE PATIENT IS SLEEPING INTERMITTENTLY IN HER BED, WILL CONTINUE TO MONITOR FOR SAFETY & BEHAVIOR.
[2020-01-26 08:00] VITALS: BP 140/76
[2020-01-26] MEDS: MAGNESIUM OXIDE 400 MG TABLET PO SCH (08:48)
[2020-01-26] MEDS: CALCIUM CARB 600MG /VIT D 1 EACH TABLET PO SCH (08:48)
[2020-01-26] MEDS: PANTOPRAZOLE 40 MG TABLET.DR PO SCH (08:49)
[2020-01-26] MEDS: HYDROCHLOROTHIAZIDE 25 MG TABLET PO SCH (08:49)
[2020-01-26] MEDS: FERROUS SULFATE (325 MG) 325 MG/TAB TABLET PO SCH ×2 (08:49→16:34)
[2020-01-26] MEDS: HALOPERIDOL 5 MG TABLET PO SCH ×2 (08:49→16:34)
[2020-01-26] MEDS: VALPROIC ACID 250 MG/5 ML UDC PO SCH ×2 (08:54→20:09)
--- NOTE | 2020-01-26 09:00 | NUR ---
RN NOTE PT REFUSED VALPROIC ACID
[2020-01-26] MEDS: clonazePAM 0.5 MG TABLET PO PRN (11:10)
[2020-01-26 16:00] VITALS: BP 110/55
[2020-01-26 20:00] VITALS: BP 119/48
--- NOTE | 2020-01-26 20:24 | NUR ---
GPS/LINER MACHINE OPERATOR HELPER NURSING NOTES: PT. IN THE HALLS. RESTLESS AND NEEDY. CONFUSED. PT. NEEDS CONSTANT REDIRECTION. REALITY ORIENTATION DONE AND REDIRECTED. NO C/O PAIN OR DISCOMFORT. SAFETY ENVIRONMENT OBSERVED AT ALL TIMES. WILL CONTINUE TO MONITOR Q 15 MIN FOR SAFETY AND BEHAVIOR.
[2020-01-27] MEDS: ACETAMINOPHEN 325 MG TABLET PO PRN ×2 (04:28→22:47)
[2020-01-27 08:00] VITALS: BP 104/59
[2020-01-27] MEDS: PANTOPRAZOLE 40 MG TABLET.DR PO SCH (08:13)
[2020-01-27] MEDS: VALPROIC ACID 250 MG/5 ML UDC PO SCH ×2 (08:13→20:47)
[2020-01-27] MEDS: HALOPERIDOL 5 MG TABLET PO SCH ×2 (08:13→16:09)
[2020-01-27] MEDS: MAGNESIUM OXIDE 400 MG TABLET PO SCH (08:13)
[2020-01-27] MEDS: HYDROCHLOROTHIAZIDE 25 MG TABLET PO SCH (08:14)
[2020-01-27] MEDS: CALCIUM CARB 600MG /VIT D 1 EACH TABLET PO SCH (08:17)
[2020-01-27] MEDS: FERROUS SULFATE (325 MG) 325 MG/TAB TABLET PO SCH ×2 (08:17→16:10)
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
[2020-01-27 15:57] VITALS: BP 123/59
--- NOTE | 2020-01-27 19:20 | NUR ---
RN NOTES: PT. IN HALLWAY HYPERVERBAL, PARANOID , NEEDY ,DISORGNIZED EASILY AGITATED , TALKING TO SELF, ALL NEEDS ATTENDED ANTICIPATED, ENCOURAGED PT. TO VERBALIZED ANY FEELING , NO ACUTE DISTRESS NOTED , NEEDS FREQUENTLY REDIRECTIONS , REALITY ORIENTIONS PROVIDED, WILL CONTINUITY WITH CARE.
[2020-01-27] MEDS: clonazePAM 0.5 MG TABLET PO PRN (20:09)
--- NOTE | 2020-01-27 20:09 | NUR ---
RN NOTES: ANXIETY PT. C/O FEELING ANXIOUS, PACING IN HALLWAY, KLONOPIN 0.5 MG PO PRN GIVEN PER PT. REQUEST , WILL CONTINUE TO MONITOR.
[2020-01-27 20:32] VITALS: BP 116/74
[2020-01-28] MEDS: ALENDRONATE 70 MG TABLET PO SCH (06:24)
[2020-01-28 08:00] VITALS: BP 129/64
[2020-01-28] MEDS: PANTOPRAZOLE 40 MG TABLET.DR PO SCH (08:30)
[2020-01-28] MEDS: HYDROCHLOROTHIAZIDE 25 MG TABLET PO SCH (08:30)
[2020-01-28] MEDS: MAGNESIUM OXIDE 400 MG TABLET PO SCH (08:30)
[2020-01-28] MEDS: FERROUS SULFATE (325 MG) 325 MG/TAB TABLET PO SCH ×2 (08:30→16:26)
[2020-01-28] MEDS: HALOPERIDOL 5 MG TABLET PO SCH ×2 (08:30→16:26)
[2020-01-28] MEDS: CALCIUM CARB 600MG /VIT D 1 EACH TABLET PO SCH (08:32)
[2020-01-28] MEDS: VALPROIC ACID 250 MG/5 ML UDC PO SCH ×2 (08:42→21:09)
--- NOTE | 2020-01-28 09:00 | NUR ---
GPS/RN-NOTES PATIENT REFUSED DEPAKENE 250MG P.O DESPITE EXPLANATION RISK AND BENEFITS. STATED" I DON'T LIKE IT DON'T GIVE IT TO ME, AND DO NOT FORCE ME TO TAKE". OFFERED X3
[2020-01-28 16:00] VITALS: BP 100/57
--- NOTE | 2020-01-28 19:20 | NUR ---
RN NOTES: PT. IN HALLWAY WALKING AROUND THE UNIT, HYPERVERBAL, PARANOID , NEEDY ,DISORGNIZED EASILY AGITATED , TALKING TO SELF, ALL NEEDS ATTENDED ANTICIPATED, ENCOURAGED PT. TO VERBALIZED ANY FEELING , NO ACUTE DISTRESS NOTED , NEEDS FREQUENTLY REDIRECTIONS , REALITY ORIENTIONS PROVIDED, WILL CONTINUITY WITH CARE.
[2020-01-28] MEDS: clonazePAM 0.5 MG TABLET PO PRN (19:52)
--- NOTE | 2020-01-28 19:53 | NUR ---
RN NOTES : ANXIETY PT. C/O FEELING ANXIOUS,RESTLESS, KLONOPIN 0.5 MG PO PRN GIVEN PER PT. REQUEST , WILL CONTINUE TO MONITOR.
[2020-01-28 20:51] VITALS: BP 153/66
[2020-01-28] MEDS: ACETAMINOPHEN 325 MG TABLET PO PRN (23:02)
[2020-01-29 08:00] VITALS: BP 156/86
[2020-01-29] MEDS: CALCIUM CARB 600MG /VIT D 1 EACH TABLET PO SCH (09:00)
[2020-01-29] MEDS: PANTOPRAZOLE 40 MG TABLET.DR PO SCH (09:00)
[2020-01-29] MEDS: FERROUS SULFATE (325 MG) 325 MG/TAB TABLET PO SCH ×2 (09:16→16:33)
[2020-01-29] MEDS: HALOPERIDOL 5 MG TABLET PO SCH ×2 (09:16→16:33)
[2020-01-29] MEDS: MAGNESIUM OXIDE 400 MG TABLET PO SCH (09:16)
[2020-01-29] MEDS: HYDROCHLOROTHIAZIDE 25 MG TABLET PO SCH (09:17)
[2020-01-29] MEDS: VALPROIC ACID 250 MG/5 ML UDC PO SCH ×2 (09:56→21:00)
--- NOTE | 2020-01-29 10:47 | NUR ---
GPS RN NOTE: RECEIVED PATIENT AMBULATING IN THE HALLWAY,HYPERVERBAL. SMILING, FRIENDLY, INTERACTING WITH PEERS. STATES SHE IS HAPPY. NO ACUTE DISTRESS NOTED.COMPLIANT WITH MEDICATIONS. AMBULATORY STEADY GAIT. ENVORNOMENTAL CHECKS DONE. SAFETY PRECAUTIONS IN PLACE. WILL CONT. MONITORING Q15 MINS. FOR SAFETY AND BEHAVIOR.
[2020-01-29 16:00] VITALS: BP 109/69
[2020-01-29 20:20] VITALS: BP 115/64
[2020-01-29] MEDS: ACETAMINOPHEN 325 MG TABLET PO PRN (23:39)
--- NOTE | 2020-01-30 01:25 | NUR ---
GPS RN NOTE PT WAS UP MOST OF THE NIGHT, RESTLESS, NEEDY, UNCOOPERATIVE, PACING HALLWAY. ENCOURAGED TO TAKE SLEEP MEDICATION BUT REFUSED. WILL CONTINUE TO MONITOR.
--- NOTE | 2020-01-30 06:26 | NUR ---
GPS RN NOTE PT REFUSED FULL SKIN CHECK, ONLY ALLOWED SKILLED NURSE TO TAKE PICTURES OF BOTH HANDS. REFUSED THIS NURSE TO CHECK ANY OTHER PARTS OF HER BODY. PT HANDS HAVE SEVERE VARICOSE VEINS. PICTURE TAKEN AND PLACED IN PT CHART. WILL MONITOR FOR ANY CHANGES.
[2020-01-30 08:00] VITALS: BP 121/71
[2020-01-30] MEDS: HALOPERIDOL 5 MG TABLET PO SCH ×2 (08:36→17:17)
[2020-01-30] MEDS: HYDROCHLOROTHIAZIDE 25 MG TABLET PO SCH (08:36)
[2020-01-30] MEDS: VALPROIC ACID 250 MG/5 ML UDC PO SCH ×2 (08:36→21:33)
[2020-01-30] MEDS: MAGNESIUM OXIDE 400 MG TABLET PO SCH (08:36)
[2020-01-30] MEDS: FERROUS SULFATE (325 MG) 325 MG/TAB TABLET PO SCH ×2 (08:36→17:17)
[2020-01-30] MEDS: PANTOPRAZOLE 40 MG TABLET.DR PO SCH (08:36)
[2020-01-30] MEDS: CALCIUM CARB 600MG /VIT D 1 EACH TABLET PO SCH (08:42)
--- NOTE | 2020-01-30 10:25 | NUR ---
SNF REFERRAL: TIM faxed SNF referral to Richelle residency coordinator at [facility] ([facility]) [address] [facility] [address] for review.
--- NOTE | 2020-01-30 11:43 | NUR ---
SNF REFERRAL: SW received a call from Richelle head start coordinator at [facility] ([facility]) [address] [facility] [address] stating pt has been accepted to the facility.
--- NOTE | 2020-01-30 13:38 | NUR ---
FSP Box Storage Worker: SW received a call from pts FSP gearcase assembler Montserrat [phone] requesting discharge information for pt. SW informed her that pt will be discharged to a SNF but did not have discharge orders as of today. TIM also provided her with pts current medication list. SW will contact her once pt is stable for discharge.
--- NOTE | 2020-01-30 15:00 | NUR ---
gps box car washer: psychiatrist f/u seen by dr. noriega (covering for dr. don) with no new order.
[2020-01-30 16:00] VITALS: BP 103/58
[2020-01-30 20:59] VITALS: BP 133/54
[2020-01-31 08:00] VITALS: BP 125/86
[2020-01-31] MEDS: CALCIUM CARB 600MG /VIT D 1 EACH TABLET PO SCH (08:42)
[2020-01-31] MEDS: VALPROIC ACID 250 MG/5 ML UDC PO SCH ×2 (08:42→20:56)
[2020-01-31] MEDS: FERROUS SULFATE (325 MG) 325 MG/TAB TABLET PO SCH ×2 (08:42→17:47)
[2020-01-31] MEDS: HALOPERIDOL 5 MG TABLET PO SCH ×2 (08:43→17:47)
[2020-01-31] MEDS: HYDROCHLOROTHIAZIDE 25 MG TABLET PO SCH (08:43)
[2020-01-31] MEDS: PANTOPRAZOLE 40 MG TABLET.DR PO SCH (08:43)
[2020-01-31] MEDS: MAGNESIUM OXIDE 400 MG TABLET PO SCH (08:43)
[2020-01-31 16:00] VITALS: BP 116/58
--- NOTE | 2020-01-31 18:00 | NUR ---
wandering around halls talking non stop,med compliant.
[2020-01-31 21:23] VITALS: BP 138/59
--- NOTE | 2020-02-01 06:15 | NUR ---
GPS RN NOTE PT SLEPT FOR ABOUT 2 HOURS, UP THE REST OF THE NIGHT, RESTLESS, PACING, VERY NEEDY, TALKATIVE, REFUSED REDIRECTION. INTRUSIVE, PARANOID, SUSPICIOUS, REFUSED SLEEP MEDICATION WHEN OFFERED, BELIEVES SHE DOES NOT NEED SLEEP MEDICATION TO SLEEP. TEACHING PROVIDED ON THE IMPORTANCE OF SLEEP AND COMPLIANCE WITH TREATMENT PLAN. WILL CONTINUE TO MONITOR AND ENDORSE TO AM NURSE.
[2020-02-01 08:00] VITALS: BP 151/52
[2020-02-01] MEDS: PANTOPRAZOLE 40 MG TABLET.DR PO SCH (08:25)
[2020-02-01] MEDS: FERROUS SULFATE (325 MG) 325 MG/TAB TABLET PO SCH ×2 (08:25→17:01)
[2020-02-01] MEDS: CALCIUM CARB 600MG /VIT D 1 EACH TABLET PO SCH (08:25)
[2020-02-01] MEDS: HYDROCHLOROTHIAZIDE 25 MG TABLET PO SCH (08:26)
[2020-02-01] MEDS: HALOPERIDOL 5 MG TABLET PO SCH ×2 (08:26→17:01)
[2020-02-01] MEDS: MAGNESIUM OXIDE 400 MG TABLET PO SCH (08:26)
[2020-02-01] MEDS: VALPROIC ACID 250 MG/5 ML UDC PO SCH ×3 (08:27→21:00)
--- NOTE | 2020-02-01 15:35 | NUR ---
GROUP NOTE: Pt was present in group discussing the topic of "discharge planning." SW informed pt that she will be discharging tomorrow to a SNF, pt became angry and said "no no no I'm going home." Pt is confused, disorganized, and disoriented. Pt is unable to engage in conversation and has no insight into mental illness.
[2020-02-01 16:00] VITALS: BP 150/75
[2020-02-01 20:05] VITALS: BP 112/63
--- NOTE | 2020-02-01 20:14 | NUR ---
GPS RN OPENING NOTE: RECEIVED PATIENT IN HALLWAY. AWAKE & ALERT 1-2, HYPERVERBAL, LABILE , INTRUSIVE. NO ACUTE DISTRESS NOTED.PATIENT AMBULATORY STEADY GAIT. ALL NEEDS ATTENDED AND ANTICIPATED. WILL CONT. MONITORING Q15 MINS. FOR SAFETY AND BEHAVIOR.
[2020-02-01] MEDS: ACETAMINOPHEN 325 MG TABLET PO PRN (20:46)
--- NOTE | 2020-02-01 20:51 | NUR ---
RN NOTES: PAIN PT. C/O FEELING 3/10 PAIN IN THROAT. ADMINISTERED ACETAMINOPHEN 650 MG 2 TABS PO PRN PER PT. REQUEST , WILL CONTINUE TO MONITOR.
--- NOTE | 2020-02-01 21:08 | NUR ---
RN NOTES: MEDICATION REFUSAL PT. REFUSED SCHEDULED 2100 MEDICATION DEPAKENE SYP 250MG/5ML. PT. STATED " I DON'T LIKE THE TASTE." EXPLAINED RISKS AND BENEFITS, OFFERED PT. X3 AND STILL REFUSED. WILL CONTINUE TO MONITOR FOR SAFETY AND BEHAVIOR.
[2020-02-02 08:00] VITALS: BP 168/66
[2020-02-02] MEDS: PANTOPRAZOLE 40 MG TABLET.DR PO SCH (08:44)
[2020-02-02] MEDS: HALOPERIDOL 5 MG TABLET PO SCH ×2 (08:44→16:33)
[2020-02-02] MEDS: FERROUS SULFATE (325 MG) 325 MG/TAB TABLET PO SCH ×2 (08:44→16:33)
[2020-02-02] MEDS: MAGNESIUM OXIDE 400 MG TABLET PO SCH (08:44)
[2020-02-02] MEDS: HYDROCHLOROTHIAZIDE 25 MG TABLET PO SCH (08:44)
[2020-02-02] MEDS: CALCIUM CARB 600MG /VIT D 1 EACH TABLET PO SCH (08:44)
[2020-02-02] MEDS: VALPROIC ACID 250 MG/5 ML UDC PO SCH ×2 (08:45→20:33)
--- NOTE | 2020-02-02 09:38 | NUR ---
[facility] CONTACT: contacted Dr. Blaze Campbell; psychologist with [facility] ([phone]) and left a voicemail informing him that pt will be discharged tomorrow 02/03/20 to [facility].
[2020-02-02] MEDS: ACETAMINOPHEN 325 MG TABLET PO PRN (11:47)
--- NOTE | 2020-02-02 14:17 | NUR ---
GROUP NOTE: SW encouraged pt to participate in group therapy on this present day discussing "reality testing." Pt refused to sit and was walking around the unit then sat down on a chair near her room in the hallway. Pt was speaking in gibberish and disengaged from SW.
[2020-02-02 16:00] VITALS: BP 111/60
[2020-02-02 20:00] VITALS: BP 128/67
--- NOTE | 2020-02-02 20:05 | NUR ---
GPS RN OPENING NOTE: RECEIVED PATIENT IN HALLWAY. AWAKE & ALERT 1-2, HYPERVERBAL, LABILE , INTRUSIVE. NO ACUTE DISTRESS NOTED.PATIENT AMBULATORY STEADY GAIT. WILL CONT. MONITORING Q15 MINS. FOR SAFETY AND BEHAVIOR.
--- NOTE | 2020-02-02 20:50 | NUR ---
RN NOTES: MEDICATION REFUSAL PT. REFUSED SCHEDULED 2100 MEDICATION DEPAKENE SYP 250MG/5ML. PT. STATED " IT HAS ALCOHOL AND HER THROAT HURTS" EXPLAINED RISKS AND BENEFITS, OFFERED PT. X3 AND STILL REFUSED. WILL CONTINUE TO MONITOR FOR SAFETY AND BEHAVIOR.
[2020-02-02] MEDS: clonazePAM 0.5 MG TABLET PO PRN (23:16)
--- NOTE | 2020-02-02 23:16 | NUR ---
GPS-RN NOTE: ANXIETY PATIENT IS ANXIOUS, RESTLESS, INTRUSIVE, ARGUMENTATIVE, UNABLE TO FOLLOW DIRECTIONS. ADMINISTERED KLONOPIN 0.5MG PO ORDERED. WILL CONTINUE TO MONITOR PT'S SAFETY.
[2020-02-03] MEDS: ACETAMINOPHEN 325 MG TABLET PO PRN (04:36)
--- NOTE | 2020-02-03 04:37 | NUR ---
GPS-RN NOTE: HEADACHE PATIENT C/O HEADACHE ON A PAIN SCALE OF 3/10. ADMINISTERED ACETAMINOPHEN 650MG PO ORDERED. WILL CONTINUE TO MONITOR .
[2020-02-03 08:00] VITALS: BP 120/61
[2020-02-03] MEDS: CALCIUM CARB 600MG /VIT D 1 EACH TABLET PO SCH ×2 (08:06→08:50)
[2020-02-03] MEDS: FERROUS SULFATE (325 MG) 325 MG/TAB TABLET PO SCH ×3 (08:07→17:00)
[2020-02-03] MEDS: HALOPERIDOL 5 MG TABLET PO SCH ×2 (08:07→08:52)
[2020-02-03] MEDS: HYDROCHLOROTHIAZIDE 25 MG TABLET PO SCH ×2 (08:07→08:51)
[2020-02-03] MEDS: PANTOPRAZOLE 40 MG TABLET.DR PO SCH ×2 (08:07→08:51)
[2020-02-03] MEDS: VALPROIC ACID 250 MG/5 ML UDC PO SCH ×4 (08:07→17:00)
[2020-02-03] MEDS: MAGNESIUM OXIDE 400 MG TABLET PO SCH ×2 (08:07→08:51)
--- NOTE | 2020-02-03 08:49 | NUR ---
DISCHARGE NOTE: Pt will be discharged at 12:30pm via [facility] to [facility] ([facility]) [address] [facility] [id number] . Pts sister in law Alona [phone] has been notified via voicemail. Pts mood is euthymic with congruent affect. Pt denied visual/auditory hallucinations and denied suicidal/homicidal ideation. Pt will be under the care of Psychiatrist: Dr. Sellers Address: [address] [place] [address] and Claim Processor: Dr. Justino Jason Address: [address] [address] . The multidisciplinary exit care form was done, printed, signed, and given to the patient. Addendum: 02/03/20 at 0916 by DANY DUMONT DISCHARGE NOTE: Pt will be discharged at 2:00pm via AMBULNZ Addendum: 02/03/20 at 0938 by DANY DUMONT Pt not being discharged on this present day due to pt refusing to take psych medication since 02/01/20. Pts mood is manic and agitated and not redirectabable.
--- NOTE | 2020-02-03 08:52 | NUR ---
RN NOTE- PT OPPOSITIONAL TO CARE. REFUSING ALL MORNING MEDS. PUT TO MOUTH THEN SAID WASN'T TAKING. THREW MEDS OUT. THEN PT TOLD ANOTHER RN SHE WOULD TAKE THEM FROM HER. PULLED RX AGAIN AND THIS RN HAD HER TAKE MOST EXCEPT HALDOL AND VALPROIC ACID. PT REFUSES PSYCHE MEDS. WILL NOTIFY DR RAYO. PT FOR DC.
--- NOTE | 2020-02-03 09:00 | NUR ---
PT REFUSING CARE AND MEDICATIONS. PT FOR DC TODAY. WILL CALL MD TO NOTIFY. PO INTAKE FAIR,. AMBULATING HALLS INTRUSIVE HYPERVERBAL
--- NOTE | 2020-02-03 09:32 | NUR ---
GPS/RN-NOTES RECEIVED T.O ORDER FROM DR. RAYO NOT TO DISCHARGE PATIENT TODAY. NOTED AND CARRIED OUT.
--- NOTE | 2020-02-03 09:38 | NUR ---
[facility] CONTACT: TIM contacted Dr. Blaze Campbell; psychologist with [facility] ([phone]) and informed him pts discharge has been cancelled due to pt refusing to take her psych medication. SW will keep him informed with updates.
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
[2020-02-03] MEDS ORDERED: HALOPERIDOL LACTATE INJ 5 MG/ML VIAL IM ONE (10:30)
[2020-02-03] MEDS ORDERED: BENZTROPINE MESYLATE (2MG/2ML) 2 MG/2 ML AMPUL IM ONE (10:30)
[2020-02-03] MEDS ORDERED: LORAZEPAM INJ 2 MG/ML VIAL IM ONE (10:30)
[2020-02-03] MEDS: risperiDONE 1 MG TABLET PO SCH ×2 (10:30→17:00)
--- NOTE | 2020-02-03 10:40 | NUR ---
RN NOTE- PT AGGRESSIVE AND OPPOSITIONAL. DR MCCLAIN ORDERED HALDOL 5 MG COGENTIN 1 MG AND ATIVAN 1 MG. PULLED RX AND ADMINISTERED WITH NICOLASA MIX AND YVES SIGN LANGUAGE TRANSLATOR. TOLERATED WELL. ATIVAN 1 MG WASTE COMPLETED W NICOLASA MIX PER PROTOCOL. DISPOSED OF VIALS IN SHARPS BEFORE SCANNING VIAL. NOTIFIED FORGE SHOP MACHINE REPAIRER AND WILL NOTIFY PHARMACY DEPT. MONITORING PT BEHAVIOR
[2020-02-03] MEDS ORDERED: HALOPERIDOL 5 MG TABLET PO SCH (13:00)
[2020-02-03 16:00] VITALS: BP 112/79
[2020-02-03 20:00] VITALS: BP 111/61
[2020-02-04] MEDS: ALENDRONATE 70 MG TABLET PO SCH (06:42)
[2020-02-04] MEDS: PANTOPRAZOLE 40 MG TABLET.DR PO SCH (08:38)
[2020-02-04] MEDS: FERROUS SULFATE (325 MG) 325 MG/TAB TABLET PO SCH ×2 (08:38→16:33)
[2020-02-04] MEDS: MAGNESIUM OXIDE 400 MG TABLET PO SCH (08:38)
[2020-02-04] MEDS: CALCIUM CARB 600MG /VIT D 1 EACH TABLET PO SCH (08:38)
[2020-02-04] MEDS: HYDROCHLOROTHIAZIDE 25 MG TABLET PO SCH (08:39)
[2020-02-04] MEDS: risperiDONE 1 MG TABLET PO SCH ×3 (09:00→16:33)
[2020-02-04] MEDS: VALPROIC ACID 250 MG/5 ML UDC PO SCH (09:00)
[2020-02-04 09:22] VITALS: BP 114/61
--- NOTE | 2020-02-04 09:36 | NUR ---
GPS/RN-NOTES PATIENT REFUSED DEPAKENE 250MG P.O AND RISPERDAL 1MG P.O. STATED" I DON'T TAKE THOSE MEDICATIONS I WANT TO TAKE WHAT I WANT,DON'T PUSH ME". OFFERED X3.
--- NOTE | 2020-02-04 11:11 | NUR ---
GPS/RN-NOTES NURIA SYP. CHANGE TO DEPAKOTE 250MG TAB P.O TID PER DR. MCCLAIN NOTED AND CARRIED OUT.
[2020-02-04] MEDS: clonazePAM 0.5 MG TABLET PO PRN (11:30)
--- NOTE | 2020-02-04 11:30 | NUR ---
GPS/RN-NOTES NOTED PATIENT PACING IN AND OUT THE ROOM HYPERVERBAL ,AND INTRUSIVE. KLONOPIN 0.5MG P.O GIVEN ORN ORDER. WILL CONT. MONITORING OF SAFETY AND BEHAVIOR.
[2020-02-04] MEDS: DIVALPROEX SODIUM 250 MG TABLET.DR PO SCH ×2 (13:35→16:33)
[2020-02-04 16:00] VITALS: BP 99/52
[2020-02-04 20:00] VITALS: BP 134/73
[2020-02-04] MEDS: ACETAMINOPHEN 325 MG TABLET PO PRN (21:07)
[2020-02-04] MEDS: TEMAZEPAM 7.5 MG CAPSULE PO PRN (21:20)
[2020-02-04 22:59] VITALS: BP 134/58
[2020-02-05 08:00] VITALS: BP 127/73
[2020-02-05] MEDS: CALCIUM CARB 600MG /VIT D 1 EACH TABLET PO SCH (08:28)
[2020-02-05] MEDS: DIVALPROEX SODIUM 250 MG TABLET.DR PO SCH ×3 (08:28→17:12)
[2020-02-05] MEDS: FERROUS SULFATE (325 MG) 325 MG/TAB TABLET PO SCH ×2 (08:29→17:12)
[2020-02-05] MEDS: HYDROCHLOROTHIAZIDE 25 MG TABLET PO SCH (08:29)
[2020-02-05] MEDS: risperiDONE 1 MG TABLET PO SCH ×3 (08:29→17:12)
[2020-02-05] MEDS: PANTOPRAZOLE 40 MG TABLET.DR PO SCH (08:29)
[2020-02-05] MEDS: MAGNESIUM OXIDE 400 MG TABLET PO SCH (08:29)
--- NOTE | 2020-02-05 09:00 | NUR ---
RN NOTE- PT IN HALLWAY. INTRUSIVE HYPERVERBAL OPPOSITIONAL TO CARE. ARGUMENTIVE, MED COMPLIANT W VERY STRONG EFFORT.PT AGITATED ABOUT DEPAKOTE AND RISPERDAL. PO INTAKE FAIR.
[2020-02-05 16:00] VITALS: BP 105/64
[2020-02-05] MEDS: BENZTROPINE MESYLATE (1 MG) 1 MG TABLET PO SCH (17:12)
--- NOTE | 2020-02-05 20:00 | NUR ---
GPS-RN NOTE: REFUSED WEEKLY SKIN ASSESSMENT PT REFUSED WEEKLY SKIN ASSESSMENT. DESPITE OF EXPLANATION THE RISKS AND BENEFITS. PATIENT UNCOOPERATIVE AND CONTINUED TO REFUSE. WILL CONTINUE TO MONITOR.
[2020-02-05 21:06] VITALS: BP 111/54
--- NOTE | 2020-02-05 22:15 | NUR ---
GPS-RN NOTE: PATIENT REQUESTED TYLENOL FOR PAIN. BUT PT REFUSED AFTER OPENING. PT STATED "NO, I DON'T WANT TO TAKE IT". DESPITE OF EXPLANATION THE RISKS AND BENEFITS PT. CONTINUED TO REFUSE. WILL CONTINUE TO MONITOR.
[2020-02-05] MEDS: clonazePAM 0.5 MG TABLET PO PRN (22:16)
--- NOTE | 2020-02-05 22:16 | NUR ---
GPS-RN NOTE: ANXIETY PATIENT IS ANXIOUS AND RESTLESS. ADMINISTERED KLONOPIN 0.5MG PO ORDERED. WILL CONTINUE TO MONITOR PT'S SAFETY.
[2020-02-05] MEDS: ACETAMINOPHEN 325 MG TABLET PO PRN (22:28)
[2020-02-06] MEDS: risperiDONE 1 MG TABLET PO SCH ×3 (07:29→16:47)
[2020-02-06 08:00] VITALS: BP 114/41
[2020-02-06] MEDS: CALCIUM CARB 600MG /VIT D 1 EACH TABLET PO SCH (08:21)
[2020-02-06] MEDS: DIVALPROEX SODIUM 250 MG TABLET.DR PO SCH ×3 (08:21→16:47)
[2020-02-06] MEDS: FERROUS SULFATE (325 MG) 325 MG/TAB TABLET PO SCH ×2 (08:21→16:48)
[2020-02-06] MEDS: BENZTROPINE MESYLATE (1 MG) 1 MG TABLET PO SCH ×2 (08:21→16:47)
[2020-02-06] MEDS: PANTOPRAZOLE 40 MG TABLET.DR PO SCH (08:21)
[2020-02-06] MEDS: MAGNESIUM OXIDE 400 MG TABLET PO SCH (08:22)
[2020-02-06] MEDS: HYDROCHLOROTHIAZIDE 25 MG TABLET PO SCH (08:26)
[2020-02-06 08:37] VITALS: BP 95/67
--- NOTE | 2020-02-06 09:00 | NUR ---
VISIBLE ON UNIT. PT IN HALLWAY. INTRUSIVE HYPERVERBAL OPPOSITIONAL TO CARE. ARGUMENTATIVE, MED COMPLIANT W VERY STRONG EFFORT. PO INTAKE FAIR. DENIES SI HI AH VH
[2020-02-06 16:00] VITALS: BP 105/59
--- NOTE | 2020-02-06 20:00 | NUR ---
NURSES NOTES: PATIENT SEEN IN THE HALLWAY. TALKER TO HERSELF AT TIMES. WHEN BEING TALKED TO, PATIENT NOTED TO BE CONFUSED AND TALKING NON SENSICAL STUFF. REALITY ORIENTATION DONE. LIMIT SETTING DONE. PATIENT REFUSED TO TAKE SLEEPING PILLS AT THIS TIME. WILL CONTINUE TO MONITOR PATIENT FOR MOOD, SAFETY AND BEHAVIOR.
[2020-02-06 20:09] VITALS: BP 97/46
[2020-02-07 08:00] VITALS: BP 109/67
[2020-02-07] MEDS: FERROUS SULFATE (325 MG) 325 MG/TAB TABLET PO SCH (08:38)
[2020-02-07 08:39] VITALS: BP 109/67
[2020-02-07] MEDS: MAGNESIUM OXIDE 400 MG TABLET PO SCH (08:39)
[2020-02-07] MEDS: risperiDONE 1 MG TABLET PO SCH ×2 (08:39→12:19)
[2020-02-07] MEDS: HYDROCHLOROTHIAZIDE 25 MG TABLET PO SCH (08:39)
[2020-02-07] MEDS: CALCIUM CARB 600MG /VIT D 1 EACH TABLET PO SCH (08:39)
[2020-02-07] MEDS: DIVALPROEX SODIUM 250 MG TABLET.DR PO SCH ×2 (08:39→12:19)
--- NOTE | 2020-02-07 08:51 | NUR ---
DISCHARGE NOTE: Pt will be discharged at 12:30pm via [facility] to [facility] ([facility]) [address] [facility] [id number] . Pts mood is euthymic with congruent affect. Pt denied visual/auditory hallucinations and denied suicidal/homicidal ideation. Pt will be under the care of Psychiatrist: Dr. Sellers Address: [address] [place] [address] and Journeyman Power Plant Operator: Dr. Justino Jason Address: [address] [address] . The multidisciplinary exit care form was done, printed, signed, and given to the patient.
[2020-02-07] MEDS: PANTOPRAZOLE 40 MG TABLET.DR PO SCH (08:53)
[2020-02-07] MEDS: BENZTROPINE MESYLATE (1 MG) 1 MG TABLET PO SCH (08:53)
--- NOTE | 2020-02-07 08:54 | NUR ---
FRIEND CONTACT: TIM contacted pts friend Laura ([phone]) informing him pt will be discharged on this present day to [facility]. He agreed with discharge plan.
--- NOTE | 2020-02-07 09:08 | NUR ---
[facility] CONTACT: contacted Dr. Blaze Campbell; psychologist with [facility] ([phone]) informing him that pt will be discharged on this present day to to [facility] ([facility]) [address] [place] [id number] .
--- NOTE | 2020-02-07 13:35 | NUR ---
NURSING DISCHARGE NOTE: PT WAS DISCHARGED TO [facility] ([facility]) LOCATED AT [id number] [place] [address]. PT WAS DISCHARGED TODAY AT 1335 VIA AMBULNZ TRIP #[id number] AND LEFT THE UNIT ON A GURNEY ACCOMPANIED BY TWO AIRPORT MANAGER. PT IS A&OX2, CALM, COOPERATIVE, FORGETFUL, REDIRECTABLE, MED COMPLIANT, DENIES SI/HI/AVH AT THE TIME OF DISCHARGE. PT WAS COOPERATIVE WITH THE DISCHARGE PROCESS AND HAS SIGNED ALL DISCHARGE PAPERWORK. PT REFUSED SKIN ASSESSMENT AND PICTURES TO BE TAKEN. DISCHARGE ORDER WAS GIVEN BY DR. MCCLAIN WITH ORDER TO CONTINUE ALL PSYCH MEDS AND PRNS. PT HAS BEEN MEDICALLY CLEARED BY DR. PECK WITH ORDER TO CONTINUE ALL ROUTINE AND PRN MEDICATION. REPORT WAS GIVEN TO DOMINGUEZ ALBRECHT AT [phone]. VSS. ALL BELONGINGS WERE RETURNED TO PT WELL.
== END 2020-02-07 13:35 | DRG 885 ==
LOC: ER 23:59 → GPS 01-24 00:44
PROVIDERS: ADMIT Psychiatry & Neurology Psychiatry; ATTEND Internal Medicine
DX: F25.0 Schizoaffective disorder, bipolar type (principal); F29 Unspecified psychosis not due to a substance or known physiological condition; F41.9 Anxiety disorder, unspecified; I10 Essential (primary) hypertension; F17.210 Nicotine dependence, cigarettes, uncomplicated; Z91.14 Patient's other noncompliance with medication regimen; Z91.19 Patient's noncompliance with other medical treatment and regimen
CPT/HCPCS: 36415; 80048-TC; 80061-TC; 80076-TC; 80305; 81000-TC; 85025-TC; 87081-TC; 87086-TC; 97116-TC; 97530-TC; G0480; J0515; J1630; J2060